=== PATIENT | male | born 1935 | race Asian ===

== ENCOUNTER 2019-07-18 17:12 | Inpatient (IN) | payer MEDICARE, MEDICAID ==
[2019-07-18] MEDS ORDERED: GLUCAGON HCl 1 MG KIT IM PRN (18:23)
[2019-07-18 18:31] VITALS: BP 145/89
[2019-07-18] MEDS: INSULIN LISPRO SLIDING SCALE 100 UNITS/ML UNIT SUBQ SCH (21:54)
[2019-07-18] MEDS: Albuterol Nebulizer 2.5mg/3mL HHN SCH (21:55)
[2019-07-18] MEDS ORDERED: Magnesium Hydroxide (MOM) 30 mL UDC PO PRN (22:36)
[2019-07-18] MEDS ORDERED: Maalox 30 mL Cup PO PRN (22:36)
--- NOTE | 2019-07-19 00:37 | History & Physical ---
ADMIT DATE: 07/18/2019 CHIEF COMPLAINT: Admitted to inpatient psychiatric unit. HISTORY OF PRESENT ILLNESS: This is an 83-year-old Polish Mosotho male with a history of diabetes, hypertension, hypercholesterolemia, recent diagnosis of Alzheimer's, admitted under the service of Dr. Pradhan. The patient was cleared medically from [facility]. The patient denies any current complaints. No chest pain or shortness of breath. PAST MEDICAL HISTORY: As mentioned in history of present illness. PAST SURGICAL HISTORY: Status post gallbladder surgery 2 years ago.appy ALLERGIES: No known drug allergies. MEDICATIONS: Benazepril, Janumet, _atorvastatin___, Lyrica and herbal supplements. FAMILY HISTORY: Noncontributory. SOCIAL HISTORY: Nonsmoker, nondrinker, no intravenous drug use. 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 with 3 children, 2 are here in [place], 1 in [place]. REVIEW OF SYSTEMS: gen: worsening symptoms per family, the patient has been agitated, not sleeping, not taking his medication and then appearing slightly paranoid, had several falls at night.not letting family out of the house HEENT: No blurred vision or pain. LUNGS: No diagnosis of COPD or asthma. HEART: The patient with hypertension and diabetes. ABDOMEN: No nausea, vomiting or pain. GENITOURINARY: The patient denies any syncope. PSYCHIATRIC: As stated above. PHYSICAL EXAMINATION: VITAL SIGNS: Blood pressure 156/64, respirations 18, pulse 88, temperature 98.6. GENERAL: Elderly male in no acute distress. NECK: Supple. No mass. LUNGS: Equal breath sounds; otherwise, clear to auscultation. HEART: Regular rate and rhythm with systolic ejection murmur. ABDOMEN: Soft, globular. EXTREMITIES: essentially normal, positive pulses. NEUROLOGIC: Limited, please refer to Dr. Pradhan's dictation for mental assessment. Cranial nerve 1, the patient is able to smell alcohol swab. Cranial nerve 2, able to read a printed page. Cranial nerve 3, able to move eyeballs upward and outward. Cranial nerve 4, able to move eyeballs inward and downward. Cranial nerve 5, able to clench teeth, has normal sensation on forehead. Cranial nerve 6, able to move eyes laterally on both sides. Cranial nerve 7, able to move eyebrows upward on both sides. Cranial nerve 8, able to hear finger rubs on both sides. Cranial nerve 9, this was offered, but the patient refused. Cranial nerve 10, this was offered, but the patient was unable to do. Cranial nerve 11, this was offered, but the patient was unable to do. Cranial nerve 12, this was offered, but the patient was unable to do. Motor and sensory are equal. Gait is not seen. and sensory are equal. Gait is not seen. ASSESSMENT AND PLAN: Diabetes, hypertension, hypercholesterolemia, peripheral neuropathy. Continue the patient on ADA diet and insulin sliding scale. We will continue on his oral hypoglycemic medications. We will continue metformin and Januvia. Continue on angiotensin converting enzyme inhibitor as well as Lyrica for neuropathy and a statin for hyperlipidemia. We will continue to monitor the patient closely with you, Dr. Pradhan. JOB# [id number] MTDD
[2019-07-19] MEDS: Albuterol Nebulizer 2.5mg/3mL HHN SCH ×2 (06:48→11:05)
[2019-07-19] MEDS: INSULIN LISPRO SLIDING SCALE 100 UNITS/ML UNIT SUBQ SCH ×4 (06:49→21:16)
[2019-07-19] MEDS: Multivitamin Tab PO SCH ×2 (08:34→09:09)
[2019-07-19] MEDS ORDERED: Albuterol Nebulizer 2.5mg/3mL HHN PRN (12:36)
--- NOTE | 2019-07-19 12:44 | Internal Medicine Prog Note ---
Internal Medicine Subjective - Subjective Patient seen and examined:: with staff, chart reviewed, other (sleepy, given a dose of ativan, was crying, wanted to go home) Patient is:: awake, verbal, interactive, jaret chair, confused Per staff patient has:: no adverse event, no episodes of fall, poor appetite, poor oral intake, noncompliant, refusing care Internal Medicine Objective - Results Recent Labs: Laboratory Last Values POC Glucose 141 MG/DL (70 - 105) H 07/18/19 20:30 - Physical Exam Vitals and I&O: Vital Signs Temp 98.3 F 07/19/19 06:06 Pulse 78 07/19/19 08:34 Resp 17 07/19/19 08:00 BP 148/75 07/19/19 08:34 Pulse Ox 98 07/19/19 06:06 Intake & Output 07/18/19 07/19/19 07/19/19 18:59 06:59 18:59 Intake Total 240 Balance 240 Weight (lbs) 63.503 kg Intake: Oral 240 Other: # Voids 2 # Bowel Movements 0 Weight Source Bedscale Active Medications: Current Medications Acetaminophen (Tylenol) 650 mg PO Q4H PRN PRN Reason: Pain (Mild 1-3) Stop: 09/16/19 18:21 Al Hydrox/Mg Hydrox/Simethicone (Maalox) 30 ml PO Q4HR PRN PRN Reason: GI DISTRESS Stop: 09/16/19 22:35 Albuterol Sulfate (Albuterol 2.5mg/3ml Neb Ud) 2.5 mg HHN QIDRT PRN PRN Reason: Shortness of Breath or Wheeze Stop: 09/16/19 18:59 Benazepril HCl (Lotensin) 10 mg PO BID [facility] Stop: 09/17/19 08:59 Last Admin: 07/19/19 08:34 Dose: 10 mg Dextrose (Glutose 40%) 18.75 gm PO PRN PRN PRN Reason: BS Below 70 if tolerate po Stop: 09/16/19 18:22 Glucagon (Glucagen) 1 mg IM PRN PRN PRN Reason: BS Below 70 if not tolerate po Stop: 09/16/19 18:22 Insulin Human Lispro (Humalog Insulin Sliding Scale) 0 units SUBQ ACHS KIANNA; Protocol Stop: 09/16/19 20:59 Last Admin: 07/19/19 11:33 Dose: Not Given Lorazepam (Ativan) 0.5 mg PO Q4HR PRN; Protocol PRN Reason: Anxiety Stop: 08/17/19 22:35 Last Admin: 07/19/19 08:48 Dose: 0.5 mg Magnesium Hydroxide (Milk Of Magnesia) 30 ml PO HS PRN PRN Reason: Constipation Metformin HCl (Glucophage) 500 mg PO BIDWM [facility] Stop: 09/17/19 08:59 Last Admin: 07/19/19 09:55 Dose: Not Given Multivitamins/Vitamin C (Theragran) 1 tab PO DAILY [facility] Stop: 09/17/19 08:59 Last Admin: 07/19/19 09:09 Dose: Not Given Pregabalin (Lyrica) 100 mg PO BID [facility] Stop: 09/17/19 08:59 Last Admin: 07/19/19 08:34 Dose: 100 mg Simvastatin (Zocor) 20 mg PO HS [facility]NA; Protocol Stop: 09/16/19 20:59 Sitagliptin Phosphate (Januvia) 50 mg PO BID [facility] Stop: 09/17/19 08:59 Last Admin: 07/19/19 09:53 Dose: Not Given Zolpidem Tartrate (Ambien) 10 mg PO HS PRN PRN Reason: Insomnia Stop: 09/16/19 23:00 Last Admin: 07/19/19 01:04 Dose: 10 mg General: thin HEENT: NC/AT, PERRLA, EOMI Neck: Supple, No JVD, No thyromegaly, No LAD Lungs: CTAB Cardiovascular: RRR, Normal S1, Normal S2, with murmur Abdomen: soft, non-tender, non-distended, positive bowel sound Extremities: clear Internal Medicine Assmt/Plan - Assessment Assessment: ASSESSMENT AND PLAN: Diabetes, hypertension, hypercholesterolemia, peripheral neuropathy. - Plan Plan: PLAN: Continue the patient on ADA diet and insulin sliding scale. We will continue on his oral hypoglycemic medications. We will continue metformin and Januvia. Continue on angiotensin converting enzyme inhibitor as well as Lyrica for neuropathy and a statin for hyperlipidemia. We will continue to monitor the patient closely with Dr. Lorne prince.
--- NOTE | 2019-07-19 17:30 | Psychiatric Evaluation ---
DATE OF SERVICE: 07/19/2019 JUSTIFICATION FOR HOSPITALIZATION: Aggressive combative behaviors, paranoias. HISTORY OF PRESENT ILLNESS: An 83-year-old male with recent diagnosis of dementia per Dr. Walker, who I spoke with over the phone. The patient has been more confused, more irritable, more disorganized, poor sleep at night, apparently trying to leave the house, paranoid of others, family could not really control him. On [id number], the patient is sleepy, AO to name only, not answering any really further questions, just tells me his name, says flores and then closes his eyes, does not want to engage unfortunately. PAST PSYCHIATRIC HISTORY: Diagnosis of dementia per Dr. Walker. FAMILY HISTORY: Noncontributory. SOCIAL HISTORY: [place] male, living at home with family. High family involvement, they want him back home upon stabilization. MEDICAL HISTORY: Noted including Januvia, Zocor, Lyrica, metformin, Lotensin. MENTAL STATUS EXAMINATION: Stated age, sleepy, hard to engage with not wanting to engage on exam. Poorly oriented, calm right now in a Nora chair, noted to be restless, very impulsive, unpredictable, concerns for psychosis. PROVISIONAL DIAGNOSES: Dementia, dementia with behaviors; mood, unspecified; anxiety, unspecified; psychosis, unspecified. MEDICAL: Please see full H and P. ESTIMATED LENGTH OF STAY: 7-10 days. ASSESSMENT: An 83-year-old [place]ic male with diagnosis of dementia, worsening; confusion at home, psychotic symptoms, delusions. TREATMENT PLAN: Includes group as well as milieu therapy. CONDITIONS FOR DISCHARGE: Improved mood, improved affect, better control of any psychotic symptoms. I will be contacting family as well today. JOB# [id number]
[2019-07-20] MEDS: INSULIN LISPRO SLIDING SCALE 100 UNITS/ML UNIT SUBQ SCH ×4 (06:56→21:21)
[2019-07-20] MEDS: Multivitamin Tab PO SCH (08:31)
[2019-07-20] MEDS: Therahoney Gel 42.5gm Tube TP SCH (11:20)
--- NOTE | 2019-07-20 12:38 | Internal Medicine Prog Note ---
Internal Medicine Subjective - Subjective Patient seen and examined:: with staff, chart reviewed Patient is:: awake, verbal, interactive, jaret chair, confused Per staff patient has:: no adverse event, no episodes of fall, poor appetite, poor oral intake, noncompliant, refusing care Internal Medicine Objective - Results Recent Labs: Laboratory Last Values POC Glucose 171 MG/DL (70 - 105) H 07/20/19 11:59 - Physical Exam Vitals and I&O: Vital Signs Temp 98.2 F 07/20/19 06:07 Pulse 90 07/20/19 08:30 Resp 18 07/20/19 06:07 BP 145/77 07/20/19 08:30 Pulse Ox 100 07/20/19 06:07 Intake & Output 07/19/19 07/20/19 07/20/19 18:59 06:59 18:59 Intake Total 800 120 Balance 800 120 Intake: Oral 800 120 Other: # Voids 3 2 # Bowel Movements 0 0 Active Medications: Current Medications Acetaminophen (Tylenol) 650 mg PO Q4H PRN PRN Reason: Pain (Mild 1-3) Stop: 09/16/19 18:21 Al Hydrox/Mg Hydrox/Simethicone (Maalox) 30 ml PO Q4HR PRN PRN Reason: GI DISTRESS Stop: 09/16/19 22:35 Albuterol Sulfate (Albuterol 2.5mg/3ml Neb Ud) 2.5 mg HHN QIDRT PRN PRN Reason: Shortness of Breath or Wheeze Stop: 09/16/19 18:59 Benazepril HCl (Lotensin) 10 mg PO BID [facility] Stop: 09/17/19 08:59 Last Admin: 07/20/19 08:30 Dose: 10 mg Dextrose (Glutose 40%) 18.75 gm PO PRN PRN PRN Reason: BS Below 70 if tolerate po Stop: 09/16/19 18:22 Glucagon (Glucagen) 1 mg IM PRN PRN PRN Reason: BS Below 70 if not tolerate po Stop: 09/16/19 18:22 Insulin Human Lispro (Humalog Insulin Sliding Scale) 0 units SUBQ ACHS KIANNA; Protocol Stop: 09/16/19 20:59 Last Admin: 07/20/19 11:35 Dose: 2 units Lorazepam (Ativan) 0.5 mg PO Q4HR PRN; Protocol PRN Reason: Anxiety Stop: 08/17/19 22:35 Last Admin: 07/19/19 08:48 Dose: 0.5 mg Magnesium Hydroxide (Milk Of Magnesia) 30 ml PO HS PRN PRN Reason: Constipation Metformin HCl (Glucophage) 500 mg PO BIDWM [facility] Stop: 09/17/19 08:59 Last Admin: 07/20/19 08:00 Dose: 500 mg Multivitamins/Vitamin C (Theragran) 1 tab PO DAILY [facility] Stop: 09/17/19 08:59 Last Admin: 07/20/19 08:31 Dose: 1 tab Pregabalin (Lyrica) 100 mg PO BID [facility] Stop: 09/17/19 08:59 Last Admin: 07/20/19 08:31 Dose: 100 mg Quetiapine Fumarate (Seroquel) 12.5 mg PO HS [facility]; Protocol Stop: 09/17/19 20:59 Last Admin: 07/19/19 21:14 Dose: 12.5 mg Simvastatin (Zocor) 20 mg PO HS [facility]; Protocol Stop: 09/16/19 20:59 Last Admin: 07/19/19 21:14 Dose: 20 mg Sitagliptin Phosphate (Januvia) 50 mg PO BID [facility] Stop: 09/17/19 08:59 Last Admin: 07/20/19 08:31 Dose: 50 mg Wound Care/Dressing Products (Therahoney) 1 appl TP DAILY [facility] Stop: 09/18/19 11:14 Last Admin: 07/20/19 11:20 Dose: 1 appl Zolpidem Tartrate (Ambien) 10 mg PO HS PRN PRN Reason: Insomnia Stop: 09/16/19 23:00 Last Admin: 07/19/19 01:04 Dose: 10 mg General: thin HEENT: NC/AT, PERRLA, EOMI Neck: Supple, No JVD, No thyromegaly, No LAD Lungs: CTAB Cardiovascular: RRR, Normal S1, Normal S2, with murmur Abdomen: soft, non-tender, non-distended, positive bowel sound Extremities: clear Internal Medicine Assmt/Plan - Assessment Assessment: ASSESSMENT AND PLAN: Diabetes, hypertension, hypercholesterolemia, peripheral neuropathy. - Plan Plan: PLAN: Continue the patient on ADA diet and insulin sliding scale. We will continue on his oral hypoglycemic medications. We will continue metformin and Januvia. Continue on angiotensin converting enzyme inhibitor as well as Lyrica for neuropathy and a statin for hyperlipidemia. We will continue to monitor the patient closely with you, Dr. Pradhan.
--- NOTE | 2019-07-20 19:25 | Progress Notes ---
DATE: 07/20/2019 SUBJECTIVE: An 83-year-old male with recent diagnosis of dementia. I spoke with the patient's daughter over the phone yesterday. The patient at baseline is confused, but he has been worsening at home, more confused, more irritable. Daughter noting he is getting more paranoid, memories were fading and now he is mostly living out memories from the [place], believing that his is being kidnapped and when the leaves the home, he gets extremely scared and believes that someone kidnapped her, so he starts to act out. Also, not really sleeping very well at night. Up at night, just rambling, going on and on about the [place], different topics to the point that the cannot sleep in the house and the cannot really manage him in the house, they are asking actually for placement, not confident that they can take care of him given his decompensation. Staff noting he yells at times, restless, confused, anxious, poor orientation. Medications were reviewed. Vitals were reviewed. Labs were reviewed. Blood pressure 114/67, pulse of 83. Nursing notes were reviewed, noting confusion, anxiousness, restless, talkative, but generally confused. Medications include a small dose of Seroquel, which seems to help him sleep at last night. MENTAL STATUS EXAMINATION: Stated age. Fair eye contact. Mood "okay," confused, disoriented, calm right now, very impulsive. DIAGNOSES: Dementia, dementia with behavioral disturbances; anxiety, unspecified; mood, unspecified. MEDICAL: Please see full H and P. ASSESSMENT: An 83-year-old male with no formal psychiatric history, diagnosed with dementia and worsening and more psychotic and delusional causing disturbances at home, not sleeping. Family having a hard time controlling his behaviors at home. PLAN: I will continue small dose of Seroquel, I may need to increase. Discussed at length with daughter yesterday over the phone. JOB# [id number]
[2019-07-21] MEDS: INSULIN LISPRO SLIDING SCALE 100 UNITS/ML UNIT SUBQ SCH ×4 (06:32→21:33)
[2019-07-21] MEDS: Therahoney Gel 42.5gm Tube TP SCH (08:36)
[2019-07-21] MEDS: Multivitamin Tab PO SCH (08:36)
--- NOTE | 2019-07-21 12:30 | Internal Medicine Prog Note ---
Internal Medicine Subjective - Subjective Patient seen and examined:: with staff, chart reviewed Patient is:: awake, verbal, interactive, jaret chair, confused Per staff patient has:: no adverse event, no episodes of fall, poor appetite, poor oral intake, noncompliant, refusing care Internal Medicine Objective - Results Recent Labs: Laboratory Last Values POC Glucose 179 MG/DL (70 - 105) H 07/21/19 11:21 - Physical Exam Vitals and I&O: Vital Signs Temp 97.0 F 07/21/19 05:55 Pulse 87 07/21/19 08:36 Resp 20 07/21/19 05:55 BP 120/72 07/21/19 08:36 Pulse Ox 87 07/21/19 05:55 Intake & Output 07/20/19 07/21/19 07/21/19 18:59 06:59 18:59 Intake Total 1200 240 Balance 1200 240 Intake: Oral 1200 240 Other: # Voids 2 # Bowel Movements 1 0 Active Medications: Current Medications Acetaminophen (Tylenol) 650 mg PO Q4H PRN PRN Reason: Pain (Mild 1-3) Stop: 09/16/19 18:21 Al Hydrox/Mg Hydrox/Simethicone (Maalox) 30 ml PO Q4HR PRN PRN Reason: GI DISTRESS Stop: 09/16/19 22:35 Albuterol Sulfate (Albuterol 2.5mg/3ml Neb Ud) 2.5 mg HHN QIDRT PRN PRN Reason: Shortness of Breath or Wheeze Stop: 09/16/19 18:59 Benazepril HCl (Lotensin) 10 mg PO BID [facility] Stop: 09/17/19 08:59 Last Admin: 07/21/19 08:36 Dose: 10 mg Dextrose (Glutose 40%) 18.75 gm PO PRN PRN PRN Reason: BS Below 70 if tolerate po Stop: 09/16/19 18:22 Glucagon (Glucagen) 1 mg IM PRN PRN PRN Reason: BS Below 70 if not tolerate po Stop: 09/16/19 18:22 Insulin Human Lispro (Humalog Insulin Sliding Scale) 0 units SUBQ ACHS [facility]NA; Protocol Stop: 09/16/19 20:59 Last Admin: 07/21/19 11:29 Dose: 2 units Lorazepam (Ativan) 0.5 mg PO Q4HR PRN; Protocol PRN Reason: Anxiety Stop: 08/17/19 22:35 Last Admin: 07/19/19 08:48 Dose: 0.5 mg Magnesium Hydroxide (Milk Of Magnesia) 30 ml PO HS PRN PRN Reason: Constipation Metformin HCl (Glucophage) [address] [facility] Stop: 09/17/19 08:59 Last Admin: 07/21/19 08:00 Dose: 500 mg Multivitamins/Vitamin C (Theragran) 1 tab PO DAILY [facility] Stop: 09/17/19 08:59 Last Admin: 07/21/19 08:36 Dose: 1 tab Pregabalin (Lyrica) 100 mg PO BID [facility] Stop: 09/17/19 08:59 Last Admin: 07/21/19 08:36 Dose: 100 mg Quetiapine Fumarate (Seroquel) [address] [facility]; Protocol Stop: 09/19/19 20:59 Simvastatin (Zocor) [address] [facility]; Protocol Stop: 09/16/19 20:59 Last Admin: 07/20/19 21:22 Dose: 20 mg Sitagliptin Phosphate (Januvia) 50 mg PO BID [facility] Stop: 09/17/19 08:59 Last Admin: 07/21/19 08:36 Dose: 50 mg Tamsulosin HCl (Flomax) 0.[address] [facility] Stop: 09/19/19 12:26 Wound Care/Dressing Products (Therahoney) [address] [facility] Stop: 09/18/19 11:14 Last Admin: 07/21/19 08:36 Dose: 1 appl Zolpidem Tartrate (Ambien) 10 mg PO HS PRN PRN Reason: Insomnia Stop: 09/16/19 23:00 Last Admin: 07/19/19 01:04 Dose: 10 mg General: thin HEENT: NC/AT, PERRLA, EOMI Neck: Supple, No JVD, No thyromegaly, No LAD Lungs: CTAB Cardiovascular: RRR, Normal S1, Normal S2, with murmur Abdomen: soft, non-tender, non-distended, positive bowel sound Extremities: clear Internal Medicine Assmt/Plan - Assessment Assessment: ASSESSMENT AND PLAN: Diabetes, hypertension, hypercholesterolemia, peripheral neuropathy. bph - Plan Plan: PLAN: Continue the patient on ADA diet and insulin sliding scale. We will continue on his oral hypoglycemic medications. We will continue metformin and Januvia. Continue on angiotensin converting enzyme inhibitor as well as Lyrica for neuropathy and a statin for hyperlipidemia. will add flomax
--- NOTE | 2019-07-21 14:41 | Progress Notes ---
DATE: 07/21/2019 SUBJECTIVE: He is an 83-year-old Persian male. He was coming from home, family could not handle him. 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 The patient with poor sleep, rambling, having a swallow eval, hard to follow his thought processes, noted history of dementia per the family. Dementia with behaviors, strong delusions that the family was at risk from [place], living in the war. Staff noting a lot of insomnia, mostly restless, keeps to self. Medications were reviewed. Vitals were reviewed. Labs were reviewed. No overt side effects. Blood pressure 129/62, pulse of 97. DIAGNOSIS: Dementia, dementia with behaviors. MENTAL STATUS EXAMINATION: Stated age, in a Nora chair, restless, confused, but calm right now. PLAN: We will follow alongside. PLAN: We will continue to monitor, I will be increasing his dosing of Seroquel. Family also is asking for help with placement. JOB# [id number]
[2019-07-22] MEDS: INSULIN LISPRO SLIDING SCALE 100 UNITS/ML UNIT SUBQ SCH ×4 (06:35→21:00)
[2019-07-22] MEDS: Multivitamin Tab PO SCH (09:00)
[2019-07-22] MEDS: Triple Antibiotic 0.94 gm Pkt TP SCH ×2 (09:29→17:31)
--- NOTE | 2019-07-22 10:06 | Internal Medicine Prog Note ---
Internal Medicine Subjective - Subjective Service Date: 07/22/19 Patient is:: awake, verbal, interactive, jaret chair, confused Per staff patient has:: no adverse event, no episodes of fall, poor appetite, poor oral intake, noncompliant, refusing care Internal Medicine Objective - Results Recent Labs: Laboratory Last Values POC Glucose 103 MG/DL (70 - 105) 07/22/19 05:26 - Physical Exam Vitals and I&O: Vital Signs Temp 97.4 F 07/22/19 06:08 Pulse 99 07/22/19 09:00 Resp 19 07/22/19 06:08 BP 136/67 07/22/19 09:00 Pulse Ox 99 07/22/19 06:08 Intake & Output 07/21/19 07/22/19 07/22/19 18:59 06:59 18:59 Intake Total 1000 160 Output Total 1 Balance 1000 159 Intake: Oral 1000 160 Output: Stool 1 Urine/Stool Mix 0 Other: # Voids 5 1 # Bowel Movements 0 0 Active Medications: Current Medications Acetaminophen (Tylenol) 650 mg PO Q4H PRN PRN Reason: Pain (Mild 1-3) Stop: 09/16/19 18:21 Al Hydrox/Mg Hydrox/Simethicone (Maalox) 30 ml PO Q4HR PRN PRN Reason: GI DISTRESS Stop: 09/16/19 22:35 Albuterol Sulfate (Albuterol 2.5mg/3ml Neb Ud) 2.5 mg HHN QIDRT PRN PRN Reason: Shortness of Breath or Wheeze Stop: 09/16/19 18:59 Benazepril HCl (Lotensin) 10 mg PO BID [facility] Stop: 09/17/19 08:59 Last Admin: 07/22/19 09:00 Dose: 10 mg Dextrose (Glutose 40%) 18.75 gm PO PRN PRN PRN Reason: BS Below 70 if tolerate po Stop: 09/16/19 18:22 Glucagon (Glucagen) 1 mg IM PRN PRN PRN Reason: BS Below 70 if not tolerate po Stop: 09/16/19 18:22 Insulin Human Lispro (Humalog Insulin Sliding Scale) 0 units SUBQ ACHS KIANNA; Protocol Stop: 09/16/19 20:59 Last Admin: 07/22/19 06:35 Dose: Not Given Lorazepam (Ativan) 0.5 mg PO Q4HR PRN; Protocol PRN Reason: Anxiety Stop: 08/17/19 22:35 Last Admin: 07/21/19 16:36 Dose: 0.5 mg Magnesium Hydroxide (Milk Of Magnesia) 30 ml PO HS PRN PRN Reason: Constipation Metformin HCl (Glucophage) 500 mg PO BIDWM [facility]NA Stop: 09/17/19 08:59 Last Admin: 07/22/19 09:00 Dose: 500 mg Multivitamins/Vitamin C (Theragran) 1 tab PO DAILY [facility] Stop: 09/17/19 08:59 Last Admin: 07/22/19 09:00 Dose: 1 tab Neomycin/Polymyxin/Bacitracin (Triple Antibiotic Pkt) 1 pkt TP BID [facility] Stop: 09/20/19 08:59 Last Admin: 07/22/19 09:29 Dose: 1 pkt Pregabalin (Lyrica) 100 mg PO BID [facility] Stop: 09/17/19 08:59 Last Admin: 07/22/19 09:00 Dose: 100 mg Quetiapine Fumarate (Seroquel) 25 mg PO HS KIANNA; Protocol Stop: 09/19/19 20:59 Last Admin: 07/21/19 21:28 Dose: 25 mg Simvastatin (Zocor) 20 mg PO HS KIANNA; Protocol Stop: 09/16/19 20:59 Last Admin: 07/21/19 21:28 Dose: 20 mg Sitagliptin Phosphate (Januvia) 50 mg PO BID [facility] Stop: 09/17/19 08:59 Last Admin: 07/22/19 09:25 Dose: 50 mg Tamsulosin HCl (Flomax) 0.4 mg PO DAILY [facility] Stop: 09/19/19 12:26 Last Admin: 07/22/19 09:01 Dose: 0.4 mg Wound Care/Dressing Products (Therahoney) 1 appl TP DAILY [facility] Stop: 09/18/19 11:14 Last Admin: 07/21/19 08:36 Dose: 1 appl Zolpidem Tartrate (Ambien) 10 mg PO HS PRN PRN Reason: Insomnia Stop: 09/16/19 23:00 Last Admin: 07/19/19 01:04 Dose: 10 mg General: thin HEENT: NC/AT, PERRLA, EOMI Neck: Supple, No JVD, No thyromegaly, No LAD Lungs: CTAB Cardiovascular: RRR, Normal S1, Normal S2, with murmur Abdomen: soft, non-tender, non-distended, positive bowel sound Extremities: clear Internal Medicine Assmt/Plan - Assessment Assessment: ASSESSMENT AND PLAN: Diabetes, hypertension, hypercholesterolemia, peripheral neuropathy. bph - Plan Plan: Continue the patient on ADA diet and insulin sliding scale. We will continue on his oral hypoglycemic medications. We will continue metformin and Januvia. Continue on angiotensin converting enzyme inhibitor as well as Lyrica for neuropathy and a statin for hyperlipidemia. Nutritional Asmnt/Malnutr-PDOC - Dietary Evaluation Malnutrition Findings (Please click <Entered> for more info): Nutritional Asmnt/Malnutrition Start: 07/21/19 14: 03 Text: Status: Complete Freq: Protocol: Document 07/21/19 14:03 JASBIR (Rec: 07/21/19 14:10 JASBIR [email or web address]) Nutritional Asmnt/Malnutrition Patient General Information Nutritional Screening Moderate Risk Low Risk Diagnosis Psychosis Pertinent Medical Hx/Surgical Hx HTN, DM, Hypercholesterolemia, Alzheimers Subjective Information Pt is a 83-year-old male admitted on 07/17 d/t aggressive combative behaviors , paranoias. Pt is eating an estimated 70% of meals per [employer]IL[employer] MECH[employer]IC account. Dietary is currently providing an estimated 2500 kcals and 128 gm Pro, per Pt PO intake this is providing an estimated 1750 kcals and 90gm Pro to meet 100% kcal and 100 +% Pro needs. Pt receives Glucerna TID with snacks per pt request. 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 Pt stated he does not need a liquid diet, he does enjoy soups but can chew just fine. Pt does require assistance when eating. Pt. is adequately meeting estimated nutritional needs, has not had any Glucerna. Discounting Glucerna TID, will continue to monitor PO intake. Anthropometrics HT: 57 WT: 140 LB (63.63 kg) BMI: 21.92 (Normal) GI/ Skin Integrity GI: WNL, Soft, Non-tender, flat BM: 07/19 x1 I/O: 1440/Not Noted Skin: Wound on nose bridge, left fifth toe wound Brody: 17 Diet Order: CCHO, Chopped Estimated Energy Needs: ( Geriatric, CBW) 7581-0710 kcals (25-30 kcals/ kg) 65-80g Pro (1.0-1.2 g/kg) 9844-3922 ml (25-30 ml/kg) Current Diet Order/ Nutrition Support CCHO, Chopped Patient / S.O Can Pertinent Medications Maalox (PRN), Albuterol (PRN), Glutose 40% (PRN), Glucagen ( PRN), INS-SS, MOM (PRN), Glucophage, Theragran, Januvia , Flomax Pertinent Labs POC Glucose (last 24 hrs): 106 , 171, 108, 96, 179 07/17 Na 130, Glucose 135, T Pro 6.1, Alb 3.3, A1C 5.8% Nutritional Hx/Data Height 5 ft 7 in Height (Calculated Centimeters) 170.2 Current Weight (lbs) 140 lb Weight (Calculated Kilograms) 63.5 Weight (Calculated Grams) 72849.9 [place] Body Weight 148 lbs (67.27kg) Body Mass Index (BMI) 21.9 Weight Status Approriate GI Symptoms GI Symptoms None Last BM 07/19 x1 Usual diet at home lots of broths Skin Integrity/Comment: Skin: Wound on nose bridge, left fifth toe wound Brody: 17 Current %PO Fair (50-74%) Estimated Nutritional Goals BEE in Kcals: Using Current wt Calories/Kcals/Kg 25-30 Kcals Calculated 2765-9789 Protein: Using Current wt Protein g/k.0-1.2 Protein Calculated 65-80 Fluid: ml 6367-2905 ml (25-30 ml/kg) Nutritional Problem 1. Problem Problem Impaired nutrient utilization Etiology r/t endocrine dysfunction Signs/Symptoms: aeb labs 07/17 Glucose 135, 07/20 POC Glucose 106, 171, 108, 96 , 179 and A1C 5.8%. Malnutrition Related to Morbid Obesity Malnutrition related to morbid obesity No Intervention/Recommendation Comments 1.Continue CCHO, chopped diet as tolerated. 2.Continue antihyperglycemic medication for glucose control per MD order. Expected Outcomes/Goals Expected Outcomes/Goals 1.PO intake to meet 75% of estimated nutritional needs. 2.Monitor PO intake, wt, nutrition related labs, and skin integrity to trend WNL. 3.F/U as low risk in 7-10 days , 07/27-07/30.
[2019-07-22] MEDS: Therahoney Gel 42.5gm Tube TP SCH (14:23)
--- NOTE | 2019-07-22 22:15 | Progress Notes ---
DATE: SUBJECTIVE: The patient was seen and chart reviewed, and discussed with staff. The patient continues to be extremely disoriented and confused, continues to feel that he is fighting in the [place] War and that his has been kidnapped. The patient is extremely verbose, confabulating most of his answers. He has however been compliant with his medications. Denying any undue side effects. PLAN: The patient continues to be extremely disoriented and confused, so that he will require inpatient care center treatment. We will monitor the patient on a daily basis for response to medications and titrate medications as needed. JOB# [id number]
[2019-07-23] MEDS: INSULIN LISPRO SLIDING SCALE 100 UNITS/ML UNIT SUBQ SCH ×4 (06:56→20:33)
[2019-07-23] MEDS: Triple Antibiotic 0.94 gm Pkt TP SCH ×2 (09:19→17:37)
[2019-07-23] MEDS: Multivitamin Tab PO SCH (09:22)
[2019-07-23] MEDS: Therahoney Gel 42.5gm Tube TP SCH (09:23)
--- NOTE | 2019-07-23 10:40 | Internal Medicine Prog Note ---
Internal Medicine Subjective - Subjective Service Date: 07/23/19 Patient is:: awake, verbal, interactive, jaret chair, confused Per staff patient has:: no adverse event, no episodes of fall, poor appetite, poor oral intake, noncompliant, refusing care Internal Medicine Objective - Results Recent Labs: Laboratory Last Values POC Glucose 126 MG/DL (70 - 105) H 07/23/19 06:04 - Physical Exam Vitals and I&O: Vital Signs Temp 97.1 F 07/23/19 06:15 Pulse 92 07/23/19 09:19 Resp 20 07/23/19 06:15 BP 132/80 07/23/19 09:19 Pulse Ox 96 07/23/19 06:15 Intake & Output 07/22/19 07/23/19 07/23/19 18:59 06:59 18:59 Intake Total 1000 360 Output Total 1 Balance 1000 359 Intake: Oral 1000 360 Output: Urine/Stool Mix 1 Other: # Voids 7 1 # Bowel Movements 1 0 Stool Characteristics Formed Brown Active Medications: Current Medications Acetaminophen (Tylenol) 650 mg PO Q4H PRN PRN Reason: Pain (Mild 1-3) Stop: 09/16/19 18:21 Al Hydrox/Mg Hydrox/Simethicone (Maalox) 30 ml PO Q4HR PRN PRN Reason: GI DISTRESS Stop: 09/16/19 22:35 Albuterol Sulfate (Albuterol 2.5mg/3ml Neb Ud) 2.5 mg HHN QIDRT PRN PRN Reason: Shortness of Breath or Wheeze Stop: 09/16/19 18:59 Benazepril HCl (Lotensin) 10 mg PO BID [facility] Stop: 09/17/19 08:59 Last Admin: 07/23/19 09:19 Dose: 10 mg Dextrose (Glutose 40%) 18.75 gm PO PRN PRN PRN Reason: BS Below 70 if tolerate po Stop: 09/16/19 18:22 Glucagon (Glucagen) 1 mg IM PRN PRN PRN Reason: BS Below 70 if not tolerate po Stop: 09/16/19 18:22 Insulin Human Lispro (Humalog Insulin Sliding Scale) 0 units SUBQ ACHS KIANNA; Protocol Stop: 09/16/19 20:59 Last Admin: 07/23/19 06:56 Dose: Not Given Lorazepam (Ativan) 0.5 mg PO Q4HR PRN; Protocol PRN Reason: Anxiety Stop: 08/17/19 22:35 Last Admin: 07/21/19 16:36 Dose: 0.5 mg Magnesium Hydroxide (Milk Of Magnesia) 30 ml PO HS PRN PRN Reason: Constipation Metformin HCl (Glucophage) 500 mg PO BIDWM [facility] Stop: 09/17/19 08:59 Last Admin: 07/23/19 09:19 Dose: 500 mg Multivitamins/Vitamin C (Theragran) 1 tab PO DAILY [facility] Stop: 09/17/19 08:59 Last Admin: 07/23/19 09:22 Dose: 1 tab Neomycin/Polymyxin/Bacitracin (Triple Antibiotic Pkt) 1 pkt TP BID [facility] Stop: 09/20/19 08:59 Last Admin: 07/23/19 09:19 Dose: 1 pkt Pregabalin (Lyrica) 100 mg PO BID [facility] Stop: 09/17/19 08:59 Last Admin: 07/23/19 09:22 Dose: 100 mg Quetiapine Fumarate (Seroquel) 25 mg PO HS KIANNA; Protocol Stop: 09/19/19 20:59 Last Admin: 07/22/19 21:02 Dose: 25 mg Simvastatin (Zocor) 20 mg PO HS [facility]IANNA; Protocol Stop: 09/16/19 20:59 Last Admin: 07/22/19 21:02 Dose: 20 mg Sitagliptin Phosphate (Januvia) 50 mg PO BID [facility] Stop: 09/17/19 08:59 Last Admin: 07/23/19 09:22 Dose: 50 mg Tamsulosin HCl (Flomax) 0.4 mg PO DAILY [facility] Stop: 09/19/19 12:26 Last Admin: 07/23/19 09:23 Dose: 0.4 mg Wound Care/Dressing Products (Therahoney) 1 appl TP DAILY [facility] Stop: 09/18/19 11:14 Last Admin: 07/23/19 09:23 Dose: 1 appl Zolpidem Tartrate (Ambien) 10 mg PO HS PRN PRN Reason: Insomnia Stop: 09/16/19 23:00 Last Admin: 07/22/19 21:02 Dose: 10 mg General: thin HEENT: NC/AT, PERRLA, EOMI Neck: Supple, No JVD, No thyromegaly, No LAD Lungs: CTAB Cardiovascular: RRR, Normal S1, Normal S2, with murmur Abdomen: soft, non-tender, non-distended, positive bowel sound Extremities: clear Internal Medicine Assmt/Plan - Assessment Assessment: ASSESSMENT AND PLAN: Diabetes, hypertension, hypercholesterolemia, peripheral neuropathy. bph - Plan Plan: Continue the patient on ADA diet and insulin sliding scale. We will continue on his oral hypoglycemic medications. We will continue metformin and Januvia. Continue on angiotensin converting enzyme inhibitor as well as Lyrica for neuropathy and a statin for hyperlipidemia. Nutritional Asmnt/Malnutr-PDOC - Dietary Evaluation Malnutrition Findings (Please click <Entered> for more info): Nutritional Asmnt/Malnutrition Start: 07/21/19 14: 03 Text: Status: Complete Freq: Protocol: Document 07/21/19 14:03 JASBIR (Rec: 07/21/19 14:10 JASBIR [email or web address]) Nutritional Asmnt/Malnutrition Patient General Information Nutritional Screening Moderate Risk Low Risk Diagnosis Psychosis Pertinent Medical Hx/Surgical Hx HTN, DM, Hypercholesterolemia, Alzheimers Subjective Information Pt is a 83-year-old male admitted on 07/17 d/t aggressive combative behaviors , paranoias. 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 Dietary is currently providing an estimated 2500 kcals and 128 gm Pro, per Pt PO intake this is providing an estimated 1750 kcals and 90gm Pro to meet 100% kcal and 100 +% Pro needs. Pt receives Glucerna TID with snacks per pt request. 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 Pt stated he does not need a liquid diet, he does enjoy soups but can chew just fine. Pt does require assistance when eating. Pt. is adequately meeting estimated nutritional needs, has not had any Glucerna. Discounting Glucerna TID, will continue to monitor PO intake. Anthropometrics HT: 57 WT: 140 LB (63.63 kg) BMI: 21.92 (Normal) GI/ Skin Integrity GI: WNL, Soft, Non-tender, flat BM: 07/19 x1 I/O: 1440/Not Noted Skin: Wound on nose bridge, left fifth toe wound Brody: 17 Diet Order: CCHO, Chopped Estimated Energy Needs: ( Geriatric, CBW) 9658-9507 kcals (25-30 kcals/ kg) 65-80g Pro (1.0-1.2 g/kg) 3576-8084 ml (25-30 ml/kg) Current Diet Order/ Nutrition Support CCHO, Chopped Patient / S.O Can Pertinent Medications Maalox (PRN), Albuterol (PRN), Glutose 40% (PRN), Glucagen ( PRN), INS-SS, MOM (PRN), Glucophage, Theragran, Januvia , Flomax Pertinent Labs POC Glucose (last 24 hrs): 106 , 171, 108, 96, 179 07/17 Na 130, Glucose 135, T Pro 6.1, Alb 3.3, A1C 5.8% Nutritional Hx/Data Height 5 ft 7 in Height (Calculated Centimeters) 170.2 Current Weight (lbs) 140 lb Weight (Calculated Kilograms) 63.5 Weight (Calculated Grams) 98299.9 [place] Body Weight 148 lbs (67.27kg) Body Mass Index (BMI) 21.9 Weight Status Approriate GI Symptoms GI Symptoms None Last BM 07/19 x1 Usual diet at home lots of broths Skin Integrity/Comment: Skin: Wound on nose bridge, left fifth toe wound Brody: 17 Current %PO Fair (50-74%) Estimated Nutritional Goals BEE in Kcals: Using Current wt Calories/Kcals/Kg 25-30 Kcals Calculated 5104-3110 Protein: Using Current wt Protein g/k.0-1.2 Protein Calculated 65-80 Fluid: ml 9583-4048 ml (25-30 ml/kg) Nutritional Problem 1. Problem Problem Impaired nutrient utilization Etiology r/t endocrine dysfunction Signs/Symptoms: aeb labs 07/17 Glucose 135, 07/20 POC Glucose 106, 171, 108, 96 , 179 and A1C 5.8%. Malnutrition Related to Morbid Obesity Malnutrition related to morbid obesity No Intervention/Recommendation Comments 1.Continue CCHO, chopped diet as tolerated. 2.Continue antihyperglycemic medication for glucose control per MD order. Expected Outcomes/Goals Expected Outcomes/Goals 1.PO intake to meet 75% of estimated nutritional needs. 2.Monitor PO intake, wt, nutrition related labs, and skin integrity to trend WNL. 3.F/U as low risk in 7-10 days , 07/27-07/30.
--- NOTE | 2019-07-23 20:10 | Progress Notes ---
DATE: SUBJECTIVE: The patient is currently in the hospital. He is an 83-year-old [place] born male who is coming from home, was causing a lot of disturbances at home, was very unruly, agitated, reliving the [place] War. 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 Family had a lot of concerns about his behaviors. He was not sleeping at night, psychotic, delusional, also concerned that the was possibly in harm's way, also elderly herself. Currently now in the hospital, he is calmer. Staff noting he has actually been sleeping better. It seems that the increased dose of Seroquel is calming him down. He is eating with some assistance, sleeping more through the night, polite on exam, limited [place]. I did speak with the daughter at length last week, also discussed at length with staff today, also the ____, RN. Medications were reviewed. Labs ____ EPS, no akathisia. He does not appear to be oversedated. MENTAL STATUS EXAMINATION: Stated age. Fair eye contact, in a Nora chair, confused, disoriented, AO to name only, calm, somewhat pleasant on exam, still pretty impulsive, unpredictable, staff watching him closely. He needs quite a bit of assistance with ADLs. DIAGNOSES: Dementia, dementia with behaviors; mood, unspecified; anxiety, unspecified; psychosis, unspecified. PLAN: Doing well with current dosing of his Seroquel. We will continue to monitor. We will wait on any dose adjustments for now. JOB# [id number]
[2019-07-24] MEDS: INSULIN LISPRO SLIDING SCALE 100 UNITS/ML UNIT SUBQ SCH ×4 (06:33→20:50)
[2019-07-24] MEDS: Multivitamin Tab PO SCH (08:21)
[2019-07-24] MEDS: Triple Antibiotic 0.94 gm Pkt TP SCH ×2 (08:22→16:11)
[2019-07-24] MEDS: Therahoney Gel 42.5gm Tube TP SCH (09:48)
--- NOTE | 2019-07-24 12:52 | Internal Medicine Prog Note ---
Internal Medicine Subjective - Subjective Patient seen and examined:: with staff, chart reviewed Patient is:: awake, verbal, interactive, jaret chair, confused Per staff patient has:: no adverse event, no episodes of fall, poor appetite, poor oral intake, noncompliant, refusing care Internal Medicine Objective - Results Recent Labs: Laboratory Last Values POC Glucose 110 MG/DL (70 - 105) H 07/24/19 06:14 - Physical Exam Vitals and I&O: Vital Signs Temp 97.5 F 07/24/19 06:09 Pulse 78 07/24/19 08:21 Resp 17 07/24/19 08:00 BP 129/70 07/24/19 08:21 Pulse Ox 91 07/24/19 06:09 Intake & Output 07/23/19 07/24/19 07/24/19 18:59 06:59 18:59 Intake Total 750 Balance 750 Intake: Oral 750 Other: # Voids 3 # Bowel Movements 2 0 Stool Characteristics Formed Brown Active Medications: Current Medications Acetaminophen (Tylenol) 650 mg PO Q4H PRN PRN Reason: Pain (Mild 1-3) Stop: 09/16/19 18:21 Last Admin: 07/23/19 15:30 Dose: 650 mg Al Hydrox/Mg Hydrox/Simethicone (Maalox) 30 ml PO Q4HR PRN PRN Reason: GI DISTRESS Stop: 09/16/19 22:35 Albuterol Sulfate (Albuterol 2.5mg/3ml Neb Ud) 2.5 mg HHN QIDRT PRN PRN Reason: Shortness of Breath or Wheeze Stop: 09/16/19 18:59 Benazepril HCl (Lotensin) 10 mg PO BID [facility] Stop: 09/17/19 08:59 Last Admin: 07/24/19 08:21 Dose: 10 mg Dextrose (Glutose 40%) 18.75 gm PO PRN PRN PRN Reason: BS Below 70 if tolerate po Stop: 09/16/19 18:22 Glucagon (Glucagen) 1 mg IM PRN PRN PRN Reason: BS Below 70 if not tolerate po Stop: 09/16/19 18:22 Insulin Human Lispro (Humalog Insulin Sliding Scale) 0 units SUBQ ACHS KIANNA; Protocol Stop: 09/16/19 20:59 Last Admin: 07/24/19 11:28 Dose: Not Given Lorazepam (Ativan) 0.5 mg PO Q4HR PRN; Protocol PRN Reason: Anxiety Stop: 08/17/19 22:35 Last Admin: 07/21/19 16:36 Dose: 0.5 mg Magnesium Hydroxide (Milk Of Magnesia) 30 ml PO HS PRN PRN Reason: Constipation Metformin HCl (Glucophage) 500 mg PO BIDWM [facility] Stop: 09/17/19 08:59 Last Admin: 07/24/19 08:21 Dose: 500 mg Multivitamins/Vitamin C (Theragran) 1 tab PO DAILY [facility] Stop: 09/17/19 08:59 Last Admin: 07/24/19 08:21 Dose: 1 tab Neomycin/Polymyxin/Bacitracin (Triple Antibiotic Pkt) 1 pkt TP BID [facility] Stop: 09/20/19 08:59 Last Admin: 07/24/19 08:22 Dose: 1 pkt Pregabalin (Lyrica) 100 mg PO BID [facility] Stop: 09/17/19 08:59 Last Admin: 07/24/19 08:21 Dose: 100 mg Quetiapine Fumarate (Seroquel) 25 mg PO HS [facility]; Protocol Stop: 09/19/19 20:59 Last Admin: 07/23/19 20:33 Dose: 25 mg Simvastatin (Zocor) 20 mg PO HS [facility]; Protocol Stop: 09/16/19 20:59 Last Admin: 07/23/19 20:33 Dose: 20 mg Sitagliptin Phosphate (Januvia) 50 mg PO BID [facility] Stop: 09/17/19 08:59 Last Admin: 07/24/19 08:21 Dose: 50 mg Tamsulosin HCl (Flomax) 0.4 mg PO DAILY [facility] Stop: 09/19/19 12:26 Last Admin: 07/24/19 08:21 Dose: 0.4 mg Wound Care/Dressing Products (Therahoney) 1 appl TP DAILY [facility] Stop: 09/18/19 11:14 Last Admin: 07/23/19 09:23 Dose: 1 appl Zolpidem Tartrate (Ambien) 10 mg PO HS PRN PRN Reason: Insomnia Stop: 09/16/19 23:00 Last Admin: 07/23/19 20:33 Dose: 10 mg General: thin HEENT: NC/AT, PERRLA, EOMI Neck: Supple, No JVD, No thyromegaly, No LAD Lungs: CTAB Cardiovascular: RRR, Normal S1, Normal S2, with murmur Abdomen: soft, non-tender, non-distended, positive bowel sound Extremities: clear Internal Medicine Assmt/Plan - Assessment Assessment: ASSESSMENT AND PLAN: Diabetes, hypertension, hypercholesterolemia, peripheral neuropathy. bph - Plan Plan: PLAN: Continue the patient on ADA diet and insulin sliding scale. We will continue on his oral hypoglycemic medications. We will continue metformin and Januvia. Continue on angiotensin converting enzyme inhibitor as well as Lyrica for neuropathy and a statin for hyperlipidemia. will add flomax Nutritional Asmnt/Malnutr-PDOC - Dietary Evaluation Malnutrition Findings (Please click <Entered> for more info): Nutritional Asmnt/Malnutrition Start: 07/21/19 14: 03 Text: Status: Complete Freq: Protocol: Document 07/21/19 14:03 JASBIR (Rec: 07/21/19 14:10 JASBIR [email or web address]) Nutritional Asmnt/Malnutrition Patient General Information Nutritional Screening Moderate Risk Low Risk Diagnosis Psychosis Pertinent Medical Hx/Surgical Hx HTN, DM, Hypercholesterolemia, Alzheimers Subjective Information Pt is a 83-year-old male admitted on 07/17 d/t aggressive combative behaviors , paranoias. 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 Dietary is currently providing an estimated 2500 kcals and 128 gm Pro, per Pt PO intake this is providing an estimated 1750 kcals and 90gm Pro to meet 100% kcal and 100 +% Pro needs. Pt receives Glucerna TID with snacks per pt request. 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 Pt stated he does not need a liquid diet, he does enjoy soups but can chew just fine. Pt does require assistance when eating. Pt. is adequately meeting estimated nutritional needs, has not had any Glucerna. Discounting Glucerna TID, will continue to monitor PO intake. Anthropometrics HT: 57 WT: 140 LB (63.63 kg) BMI: 21.92 (Normal) GI/ Skin Integrity GI: WNL, Soft, Non-tender, flat BM: 07/19 x1 I/O: 1440/Not Noted Skin: Wound on nose bridge, left fifth toe wound Brody: 17 Diet Order: CCHO, Chopped Estimated Energy Needs: ( Geriatric, CBW) 2168-0586 kcals (25-30 kcals/ kg) 65-80g Pro (1.0-1.2 g/kg) 6847-4273 ml (25-30 ml/kg) Current Diet Order/ Nutrition Support CCHO, Chopped Patient / S.O Can Pertinent Medications Maalox (PRN), Albuterol (PRN), Glutose 40% (PRN), Glucagen ( PRN), INS-SS, MOM (PRN), Glucophage, Theragran, Januvia , Flomax Pertinent Labs POC Glucose (last 24 hrs): 106 , 171, 108, 96, 179 07/17 Na 130, Glucose 135, T Pro 6.1, Alb 3.3, A1C 5.8% Nutritional Hx/Data Height 1.7 m Height (Calculated Centimeters) 170.2 Current Weight (lbs) 63.503 kg Weight (Calculated Kilograms) 63.5 Weight (Calculated Grams) 22028.9 [place] Body Weight 148 lbs (67.27kg) Body Mass Index (BMI) 21.9 Weight Status Approriate GI Symptoms GI Symptoms None Last BM 07/19 x1 Usual diet at home lots of broths Skin Integrity/Comment: Skin: Wound on nose bridge, left fifth toe wound Brody: 17 Current %PO Fair (50-74%) Estimated Nutritional Goals BEE in Kcals: Using Current wt Calories/Kcals/Kg 25-30 Kcals Calculated 5742-6382 Protein: Using Current wt Protein g/k.0-1.2 Protein Calculated 65-80 Fluid: ml 2092-3623 ml (25-30 ml/kg) Nutritional Problem 1. Problem Problem Impaired nutrient utilization Etiology r/t endocrine dysfunction Signs/Symptoms: aeb labs 07/17 Glucose 135, 5/ POC Glucose 106, 171, 108, 96 , 179 and A1C 5.8%. Malnutrition Related to Morbid Obesity Malnutrition related to morbid obesity No Intervention/Recommendation Comments 1.Continue CCHO, chopped diet as tolerated. 2.Continue antihyperglycemic medication for glucose control per MD order. Expected Outcomes/Goals Expected Outcomes/Goals 1.PO intake to meet 75% of estimated nutritional needs. 2.Monitor PO intake, wt, nutrition related labs, and skin integrity to trend WNL. 3.F/U as low risk in 7-10 days , 07/27-07/30.
--- NOTE | 2019-07-24 19:41 | Progress Notes ---
DATE: 07/24/2019 SUBJECTIVE: An 83-year-old male, currently in the hospital, seems to be showing some signs of improvement, calmer on exam. Staff noting he has been sleeping significantly better and seems to be less restless, still in a Nora chair. No overt psychotic symptoms. I tried to talk to him, but his Kyrgyz is pretty limited. I spoke with the family last week. He knows that he is demented, confused. Most of the history was from family. I reviewed the chart, discussed with nursing staff at length. Medications were reviewed. Labs were reviewed. Vitals were reviewed. No overt side effects. Tolerant of Seroquel. No EPS, no akathisia or oversedation. MENTAL STATUS EXAMINATION: In a Nora chair, calm, more cooperative, more engaged, awake, alert, but still confused. No overt psychosis. DIAGNOSIS: Dementia, dementia with behaviors; mood, unspecified; anxiety, unspecified; psychosis, unspecified. ASSESSMENT: An 83-year-old male demented. He was having delusions, delusions about being kidnapped. These ideations seemed to be lessening. He is not acting out on any of these psychotic symptoms. PLAN: We will continue inpatient monitoring. We will attempt to coordinate care with social science research assistant regarding a safe discharge plan. Family was seeking a step-down eventually to a convalescent home. JOB# [id number]
[2019-07-25] MEDS: INSULIN LISPRO SLIDING SCALE 100 UNITS/ML UNIT SUBQ SCH ×4 (07:19→20:37)
[2019-07-25] MEDS: Multivitamin Tab PO SCH (08:35)
[2019-07-25] MEDS: Therahoney Gel 42.5gm Tube TP SCH (08:35)
[2019-07-25] MEDS: Triple Antibiotic 0.94 gm Pkt TP SCH ×2 (08:41→16:45)
--- NOTE | 2019-07-25 11:42 | Progress Notes ---
DATE: 07/25/2019 SUBJECTIVE: An 83-year-old male, currently in the hospital, calm, seems to be showing some signs of improvement. Time was spent with the patient trying to speak with the patient, he is pretty confused, limited historian. I was able to spend time with staff, discussed with staff. Reviewed nursing notes. Slept on and off about 4 hours, still somewhat impulsive, unpredictable, psychotic symptoms dissipating, decreasing. No overt paranoias. Medications were reviewed. Labs were reviewed. Vitals reviewed, blood pressure 96/58, pulse of 106. MENTAL STATUS EXAMINATION: Stated age, fair eye contact, calm. Generally cooperative, sleeping better, more well rested appearing. Limited historian. Better impulse control. PLAN: I will continue inpatient monitoring. Continue dosing of Seroquel, monitor his vitals. We are also working on a safe disposition. JOB# [id number]
--- NOTE | 2019-07-25 13:15 | Internal Medicine Prog Note ---
Internal Medicine Subjective - Subjective Patient seen and examined:: with staff, chart reviewed Patient is:: awake, verbal, interactive, jaret chair, confused Per staff patient has:: no adverse event, no episodes of fall, poor appetite, poor oral intake, noncompliant, refusing care Internal Medicine Objective - Results Recent Labs: Laboratory Last Values POC Glucose 104 MG/DL (70 - 105) 07/25/19 12:24 - Physical Exam Vitals and I&O: Vital Signs Temp 97.6 F 07/25/19 06:14 Pulse 108 07/25/19 08:39 Resp 19 07/25/19 08:00 BP 102/58 07/25/19 08:39 Pulse Ox 95 07/25/19 06:14 Intake & Output 07/24/19 07/25/19 07/25/19 18:59 06:59 18:59 Intake Total 1000 360 Output Total 1 Balance 1000 359 Intake: Oral 1000 360 Output: Urine/Stool Mix 1 Other: # Voids 4 2 # Bowel Movements 0 0 Active Medications: Current Medications Acetaminophen (Tylenol) 650 mg PO Q4H PRN PRN Reason: Pain (Mild 1-3) Stop: 09/16/19 18:21 Last Admin: 07/23/19 15:30 Dose: 650 mg Al Hydrox/Mg Hydrox/Simethicone (Maalox) 30 ml PO Q4HR PRN PRN Reason: GI DISTRESS Stop: 09/16/19 22:35 Albuterol Sulfate (Albuterol 2.5mg/3ml Neb Ud) 2.5 mg HHN QIDRT PRN PRN Reason: Shortness of Breath or Wheeze Stop: 09/16/19 18:59 Benazepril HCl (Lotensin) 10 mg PO BID [facility] Stop: 09/17/19 08:59 Last Admin: 07/25/19 08:39 Dose: Not Given Dextrose (Glutose 40%) 18.75 gm PO PRN PRN PRN Reason: BS Below 70 if tolerate po Stop: 09/16/19 18:22 Glucagon (Glucagen) 1 mg IM PRN PRN PRN Reason: BS Below 70 if not tolerate po Stop: 09/16/19 18:22 Insulin Human Lispro (Humalog Insulin Sliding Scale) 0 units SUBQ ACHS [facility]; Protocol Stop: 09/16/19 20:59 Last Admin: 07/25/19 12:25 Dose: Not Given Lorazepam (Ativan) 0.5 mg PO Q4HR PRN; Protocol PRN Reason: Anxiety Stop: 08/17/19 22:35 Last Admin: 07/21/19 16:36 Dose: 0.5 mg Magnesium Hydroxide (Milk Of Magnesia) 30 ml PO HS PRN PRN Reason: Constipation Metformin HCl (Glucophage) 500 mg PO BIDWM [facility] Stop: 09/17/19 08:59 Last Admin: 07/25/19 07:57 Dose: 500 mg Multivitamins/Vitamin C (Theragran) 1 tab PO DAILY [facility] Stop: 09/17/19 08:59 Last Admin: 07/25/19 08:35 Dose: 1 tab Neomycin/Polymyxin/Bacitracin (Triple Antibiotic Pkt) 1 pkt TP BID [facility] Stop: 09/20/19 08:59 Last Admin: 07/25/19 08:41 Dose: 1 pkt Pregabalin (Lyrica) 100 mg PO BID [facility] Stop: 09/17/19 08:59 Last Admin: 07/25/19 08:35 Dose: 100 mg Quetiapine Fumarate (Seroquel) 25 mg PO HS [facility]; Protocol Stop: 09/23/19 20:59 Simvastatin (Zocor) 20 mg PO HS [facility]; Protocol Stop: 09/16/19 20:59 Last Admin: 07/24/19 21:45 Dose: 20 mg Sitagliptin Phosphate (Januvia) 50 mg PO BID [facility] Stop: 09/17/19 08:59 Last Admin: 07/25/19 08:36 Dose: 50 mg Tamsulosin HCl (Flomax) 0.4 mg PO DAILY [facility] Stop: 09/19/19 12:26 Last Admin: 07/25/19 08:35 Dose: 0.4 mg Wound Care/Dressing Products (Therahoney) 1 appl TP DAILY [facility] Stop: 09/18/19 11:14 Last Admin: 07/25/19 08:35 Dose: 1 appl Zolpidem Tartrate (Ambien) 10 mg PO HS PRN PRN Reason: Insomnia Stop: 09/16/19 23:00 Last Admin: 07/24/19 21:45 Dose: 10 mg General: thin HEENT: NC/AT, PERRLA, EOMI Neck: Supple, No JVD, No thyromegaly, No LAD Lungs: CTAB Cardiovascular: RRR, Normal S1, Normal S2, with murmur Abdomen: soft, non-tender, non-distended, positive bowel sound Extremities: clear Internal Medicine Assmt/Plan - Assessment Assessment: ASSESSMENT AND PLAN: Diabetes, hypertension, hypercholesterolemia, peripheral neuropathy. bph - Plan Plan: PLAN: Continue the patient on ADA diet and insulin sliding scale. We will continue on his oral hypoglycemic medications. We will continue metformin and Januvia. Continue on angiotensin converting enzyme inhibitor as well as Lyrica for neuropathy and a statin for hyperlipidemia. will add flomax Nutritional Asmnt/Malnutr-PDOC - Dietary Evaluation Malnutrition Findings (Please click <Entered> for more info): Nutritional Asmnt/Malnutrition Start: 07/21/19 14: 03 Text: Status: Complete Freq: Protocol: Document 07/21/19 14:03 JASBIR (Rec: 07/21/19 14:10 [email or web address] [id number]) Nutritional Asmnt/Malnutrition Patient General Information Nutritional Screening Moderate Risk Low Risk Diagnosis Psychosis Pertinent Medical Hx/Surgical Hx HTN, DM, Hypercholesterolemia, Alzheimers Subjective Information Pt is a 83-year-old male admitted on 07/17 d/t aggressive combative behaviors , paranoias. Pt is eating an estimated 70% of meals per CORPORATE COMMUNICATIONS MANAGER account. Dietary is currently providing an estimated 2500 kcals and 128 gm Pro, per Pt PO intake this is providing an estimated 1750 kcals and 90gm Pro to meet 100% kcal and 100 +% Pro needs. Pt receives Glucerna TID with snacks per pt request. Spoke with pt yesterday as group social worker was told by pts that he eats a liquid diet at home and was having trouble chewing. Pt stated he does not need a liquid diet, he does enjoy soups but can chew just fine. Pt does require assistance when eating. Pt. is adequately meeting estimated nutritional needs, has not had any Glucerna. Discounting Glucerna TID, will continue to monitor PO intake. Anthropometrics HT: 57 WT: 140 LB (63.63 kg) BMI: 21.92 (Normal) GI/ Skin Integrity GI: WNL, Soft, Non-tender, flat BM: 07/19 x1 I/O: 1440/Not Noted Skin: Wound on nose bridge, left fifth toe wound Brody: 17 Diet Order: CCHO, Chopped Estimated Energy Needs: ( Geriatric, CBW) 8460-3223 kcals (25-30 kcals/ kg) 65-80g Pro (1.0-1.2 g/kg) 7381-5588 ml (25-30 ml/kg) Current Diet Order/ Nutrition Support CCHO, Chopped Patient / S.O Can Pertinent Medications Maalox (PRN), Albuterol (PRN), Glutose 40% (PRN), Glucagen ( PRN), INS-SS, MOM (PRN), Glucophage, Theragran, Januvia , Flomax Pertinent Labs POC Glucose (last 24 hrs): 106 , 171, 108, 96, 179 07/17 Na 130, Glucose 135, T Pro 6.1, Alb 3.3, A1C 5.8% Nutritional Hx/Data Height 1.7 m Height (Calculated Centimeters) 170.2 Current Weight (lbs) 63.503 kg Weight (Calculated Kilograms) 63.5 Weight (Calculated Grams) 62443.9 Cotton Body Weight 148 lbs (67.27kg) Body Mass Index (BMI) 21.9 Weight Status Approriate GI Symptoms GI Symptoms None Last BM 07/19 x1 Usual diet at home lots of broths Skin Integrity/Comment: Skin: Wound on nose bridge, left fifth toe wound Brody: 17 Current %PO Fair (50-74%) Estimated Nutritional Goals BEE in Kcals: Using Current wt Calories/Kcals/Kg 25-30 Kcals Calculated 7735-8174 Protein: Using Current wt Protein g/k.0-1.2 Protein Calculated 65-80 Fluid: ml 6061-7274 ml (25-30 ml/kg) Nutritional Problem 1. Problem Problem Impaired nutrient utilization Etiology r/t endocrine dysfunction Signs/Symptoms: aeb labs 07/17 Glucose 135, 07/20 POC Glucose 106, 171, 108, 96 , 179 and A1C 5.8%. Malnutrition Related to Morbid Obesity Malnutrition related to morbid obesity No Intervention/Recommendation Comments 1.Continue CCHO, chopped diet as tolerated. 2.Continue antihyperglycemic medication for glucose control per MD order. Expected Outcomes/Goals Expected Outcomes/Goals 1.PO intake to meet 75% of estimated nutritional needs. 2.Monitor PO intake, wt, nutrition related labs, and skin integrity to trend WNL. 3.F/U as low risk in 7-10 days , 07/27-07/30.
[2019-07-26] MEDS: INSULIN LISPRO SLIDING SCALE 100 UNITS/ML UNIT SUBQ SCH ×4 (07:02→20:58)
[2019-07-26] MEDS: Multivitamin Tab PO SCH (08:33)
[2019-07-26] MEDS: Triple Antibiotic 0.94 gm Pkt TP SCH ×2 (08:33→17:19)
[2019-07-26] MEDS: Therahoney Gel 42.5gm Tube TP SCH (11:39)
--- NOTE | 2019-07-26 13:28 | Internal Medicine Prog Note ---
Internal Medicine Subjective - Subjective Patient seen and examined:: with staff, chart reviewed Patient is:: awake, verbal, interactive, jaret chair, confused Per staff patient has:: no adverse event, no episodes of fall, poor appetite, poor oral intake, noncompliant, refusing care Internal Medicine Objective - Results Recent Labs: Laboratory Last Values POC Glucose 110 MG/DL (70 - 105) H 07/26/19 11:29 - Physical Exam Vitals and I&O: Vital Signs Temp 97.9 F 07/26/19 05:59 Pulse 110 07/26/19 08:34 Resp 20 07/26/19 05:59 BP 125/57 07/26/19 08:34 Pulse Ox 96 07/26/19 05:59 Intake & Output 07/25/19 07/26/19 07/26/19 18:59 06:59 18:59 Intake Total 880 120 Balance 880 120 Intake: Oral 640 120 Other 240 Other: # Voids 3 3 # Bowel Movements 0 0 Active Medications: Current Medications Acetaminophen (Tylenol) 650 mg PO Q4H PRN PRN Reason: Pain (Mild 1-3) Stop: 09/16/19 18:21 Last Admin: 07/23/19 15:30 Dose: 650 mg Al Hydrox/Mg Hydrox/Simethicone (Maalox) 30 ml PO Q4HR PRN PRN Reason: GI DISTRESS Stop: 09/16/19 22:35 Albuterol Sulfate (Albuterol 2.5mg/3ml Neb Ud) 2.5 mg HHN QIDRT PRN PRN Reason: Shortness of Breath or Wheeze Stop: 09/16/19 18:59 Benazepril HCl (Lotensin) 10 mg PO BID [facility] Stop: 09/17/19 08:59 Last Admin: 07/26/19 08:34 Dose: 10 mg Cephalexin Monohydrate (Keflex) 500 mg PO TID [facility] Stop: 09/23/19 16:59 Last Admin: 07/26/19 08:33 Dose: 500 mg Dextrose (Glutose 40%) 18.75 gm PO PRN PRN PRN Reason: BS Below 70 if tolerate po Stop: 09/16/19 18:22 Glucagon (Glucagen) 1 mg IM PRN PRN PRN Reason: BS Below 70 if not tolerate po Stop: 09/16/19 18:22 Insulin Human Lispro (Humalog Insulin Sliding Scale) 0 units SUBQ ACHS [facility]; Protocol Stop: 09/16/19 20:59 Last Admin: 07/26/19 11:37 Dose: Not Given Lorazepam (Ativan) 0.5 mg PO Q4HR PRN; Protocol PRN Reason: Anxiety Stop: 08/17/19 22:35 Last Admin: 07/26/19 04:09 Dose: 0.5 mg Magnesium Hydroxide (Milk Of Magnesia) 30 ml PO HS PRN PRN Reason: Constipation Metformin HCl (Glucophage) 500 mg PO BIDWM [facility] Stop: 09/17/19 08:59 Last Admin: 07/26/19 08:34 Dose: 500 mg Multivitamins/Vitamin C (Theragran) 1 tab PO DAILY [facility] Stop: 09/17/19 08:59 Last Admin: 07/26/19 08:33 Dose: 1 tab Neomycin/Polymyxin/Bacitracin (Triple Antibiotic Pkt) 1 pkt TP BID [facility] Stop: 09/20/19 08:59 Last Admin: 07/26/19 08:33 Dose: 1 pkt Pregabalin (Lyrica) 100 mg PO BID [facility] Stop: 09/17/19 08:59 Last Admin: 07/26/19 08:34 Dose: 100 mg Quetiapine Fumarate (Seroquel) 25 mg PO HS [facility]; Protocol Stop: 09/23/19 20:59 Last Admin: 07/25/19 20:32 Dose: 25 mg Simvastatin (Zocor) 20 mg PO HS [facility]; Protocol Stop: 09/16/19 20:59 Last Admin: 07/25/19 20:31 Dose: 20 mg Sitagliptin Phosphate (Januvia) 50 mg PO BID [facility] Stop: 09/17/19 08:59 Last Admin: 07/26/19 08:35 Dose: 50 mg Tamsulosin HCl (Flomax) 0.4 mg PO DAILY [facility] Stop: 09/19/19 12:26 Last Admin: 07/26/19 08:35 Dose: 0.4 mg Wound Care/Dressing Products (Therahoney) 1 appl TP DAILY [facility] Stop: 09/18/19 11:14 Last Admin: 07/26/19 11:39 Dose: Not Given Zolpidem Tartrate (Ambien) 10 mg PO HS PRN PRN Reason: Insomnia Stop: 09/16/19 23:00 Last Admin: 07/25/19 20:32 Dose: 10 mg General: thin HEENT: NC/AT, PERRLA, EOMI Neck: Supple, No JVD, No thyromegaly, No LAD Lungs: CTAB Cardiovascular: RRR, Normal S1, Normal S2, with murmur Abdomen: soft, non-tender, non-distended, positive bowel sound Extremities: clear Internal Medicine Assmt/Plan - Assessment Assessment: ASSESSMENT AND PLAN: Diabetes, hypertension, hypercholesterolemia, peripheral neuropathy. bph l 5th digit nonhealing wound - Plan Plan: PLAN: Continue the patient on ADA diet and insulin sliding scale. We will continue on his oral hypoglycemic medications. We will continue metformin and Januvia. Continue on angiotensin converting enzyme inhibitor as well as Lyrica for neuropathy and a statin for hyperlipidemia. will add flomax add keflex ble arterial us add miralax dw cm and rn Nutritional Asmnt/Malnutr-PDOC - Dietary Evaluation Malnutrition Findings (Please click <Entered> for more info): Nutritional Asmnt/Malnutrition Start: 07/21/19 14: 03 Text: Status: Complete Freq: Protocol: Document 07/21/19 14:03 JASBIR (Rec: 07/21/19 14:10 JASBIR [email or web address]) Nutritional Asmnt/Malnutrition Patient General Information Nutritional Screening Moderate Risk Low Risk Diagnosis Psychosis Pertinent Medical Hx/Surgical Hx HTN, DM, Hypercholesterolemia, Alzheimers Subjective Information Pt is a 83-year-old male admitted on 07/17 d/t aggressive combative behaviors , paranoias. Pt is eating an estimated 70% of meals per VASCULAR SURGERY PHYSICIAN account. Dietary is currently providing an estimated 2500 kcals and 128 gm Pro, per Pt PO intake this is providing an estimated 1750 kcals and 90gm Pro to meet 100% kcal and 100 +% Pro needs. Pt receives Glucerna TID with snacks per pt request. Spoke with pt yesterday as social media analyst was told by pts that he eats a liquid diet at home and was having trouble chewing. Pt stated he does not need a liquid diet, he does enjoy soups but can chew just fine. Pt does require assistance when eating. Pt. is adequately meeting estimated nutritional needs, has not had any Glucerna. Discounting Glucerna TID, will continue to monitor PO intake. Anthropometrics HT: 57 WT: 140 LB (63.63 kg) BMI: 21.92 (Normal) GI/ Skin Integrity GI: WNL, Soft, Non-tender, flat BM: 07/19 x1 I/O: 1440/Not Noted Skin: Wound on nose bridge, left fifth toe wound Brody: 17 Diet Order: CCHO, Chopped Estimated Energy Needs: ( Geriatric, CBW) 5587-9048 kcals (25-30 kcals/ kg) 65-80g Pro (1.0-1.2 g/kg) 3070-9684 ml (25-30 ml/kg) Current Diet Order/ Nutrition Support CCHO, Chopped Patient / S.O Can Pertinent Medications Maalox (PRN), Albuterol (PRN), Glutose 40% (PRN), Glucagen ( PRN), INS-SS, MOM (PRN), Glucophage, Theragran, Januvia , Flomax Pertinent Labs POC Glucose (last 24 hrs): 106 , 171, 108, 96, 179 07/17 Na 130, Glucose 135, T Pro 6.1, Alb 3.3, A1C 5.8% Nutritional Hx/Data Height 1.7 m Height (Calculated Centimeters) 170.2 Current Weight (lbs) 63.503 kg Weight (Calculated Kilograms) 63.5 Weight (Calculated Grams) 25242.9 [employer] Body Weight 148 lbs (67.27kg) Body Mass Index (BMI) 21.9 Weight Status Approriate GI Symptoms GI Symptoms None Last BM 07/19 x1 Usual diet at home lots of broths Skin Integrity/Comment: Skin: Wound on nose bridge, left fifth toe wound Brody: 17 Current %PO Fair (50-74%) Estimated Nutritional Goals BEE in Kcals: Using Current wt Calories/Kcals/Kg 25-30 Kcals Calculated 6157-9111 Protein: Using Current wt Protein g/k.0-1.2 Protein Calculated 65-80 Fluid: ml 8643-8393 ml (25-30 ml/kg) Nutritional Problem 1. Problem Problem Impaired nutrient utilization Etiology r/t endocrine dysfunction Signs/Symptoms: aeb labs 07/17 Glucose 135, 5/1 POC Glucose 106, 171, 108, 96 , 179 and A1C 5.8%. Malnutrition Related to Morbid Obesity Malnutrition related to morbid obesity No Intervention/Recommendation Comments 1.Continue CCHO, chopped diet as tolerated. 2.Continue antihyperglycemic medication for glucose control per MD order. Expected Outcomes/Goals Expected Outcomes/Goals 1.PO intake to meet 75% of estimated nutritional needs. 2.Monitor PO intake, wt, nutrition related labs, and skin integrity to trend WNL. 3.F/U as low risk in 7-10 days , 07/27-07/30.
[2019-07-26] MEDS: POLYETHYLENE GLYCOL 3350 17 GM PACK PO SCH (14:30)
--- NOTE | 2019-07-26 19:17 | Progress Notes ---
DATE: 07/26/2019 SUBJECTIVE: The patient in the hospital on a Nora chair, still with some periods of restlessness, but likely approaching his baseline, not particularly agitated or combative, just very confused, disoriented, able to make basic needs known, but mostly AO to name only, just says antwon tanner on exam. We are trying to get the patient into a nursing home facility. Family cannot take him home. The patient able to follow commands. Medications were reviewed. Labs were reviewed. Vitals were reviewed. MENTAL STATUS EXAMINATION: Stated age, fair eye contact, calm, confused, disoriented. No overt agitation. DIAGNOSIS: Dementia. PLAN: Continue dosing of Seroquel per nursing staff. He seems to be sleeping somewhat better, short intervals. No overt agitation or escalation of behaviors. JOB# [id number]
[2019-07-27] MEDS: INSULIN LISPRO SLIDING SCALE 100 UNITS/ML UNIT SUBQ SCH ×4 (06:40→21:00)
[2019-07-27] MEDS: Triple Antibiotic 0.94 gm Pkt TP SCH ×2 (09:21→17:28)
[2019-07-27] MEDS: POLYETHYLENE GLYCOL 3350 17 GM PACK PO SCH (09:22)
[2019-07-27] MEDS: Therahoney Gel 42.5gm Tube TP SCH (09:27)
[2019-07-27] MEDS: Multivitamin Tab PO SCH (09:27)
--- NOTE | 2019-07-27 13:35 | Internal Medicine Prog Note ---
Internal Medicine Subjective - Subjective Patient seen and examined:: with staff, chart reviewed Patient is:: awake, verbal, interactive, jaret chair, confused Per staff patient has:: no adverse event, no episodes of fall, poor appetite, poor oral intake, noncompliant, refusing care Internal Medicine Objective - Results Recent Labs: Laboratory Last Values POC Glucose 126 MG/DL (70 - 105) H 07/27/19 12:04 - Physical Exam Vitals and I&O: Vital Signs Temp 98.6 F 07/27/19 06:19 Pulse 105 07/27/19 09:27 Resp 20 07/27/19 08:00 BP 109/49 07/27/19 09:27 Pulse Ox 96 07/27/19 06:19 Intake & Output 07/26/19 07/27/19 07/27/19 18:59 06:59 18:59 Intake Total 760 120 Balance 760 120 Intake: Oral 760 120 Other: # Voids 2 1 # Bowel Movements 0 0 Active Medications: Current Medications Acetaminophen (Tylenol) 650 mg PO Q4H PRN PRN Reason: Pain (Mild 1-3) Stop: 09/16/19 18:21 Last Admin: 07/23/19 15:30 Dose: 650 mg Al Hydrox/Mg Hydrox/Simethicone (Maalox) 30 ml PO Q4HR PRN PRN Reason: GI DISTRESS Stop: 09/16/19 22:35 Albuterol Sulfate (Albuterol 2.5mg/3ml Neb Ud) 2.5 mg HHN QIDRT PRN PRN Reason: Shortness of Breath or Wheeze Stop: 09/16/19 18:59 Benazepril HCl (Lotensin) 10 mg PO BID [facility] Stop: 09/17/19 08:59 Last Admin: 07/27/19 09:27 Dose: Not Given [place] Oil/[place] Balsam/Trypsin (Venelex) 1 appl TP DAILY [facility] Stop: 09/25/19 12:29 Cephalexin Monohydrate (Keflex) 500 mg PO TID [facility] Stop: 09/23/19 16:59 Last Admin: 07/27/19 09:22 Dose: 500 mg Dextrose (Glutose 40%) 18.75 gm PO PRN PRN PRN Reason: BS Below 70 if tolerate po Stop: 09/16/19 18:22 Glucagon (Glucagen) 1 mg IM PRN PRN PRN Reason: BS Below 70 if not tolerate po Stop: 09/16/19 18:22 Insulin Human Lispro (Humalog Insulin Sliding Scale) 0 units SUBQ ACHS [facility]; Protocol Stop: 09/16/19 20:59 Last Admin: 07/27/19 12:07 Dose: Not Given Lorazepam (Ativan) 0.5 mg PO Q4HR PRN; Protocol PRN Reason: Anxiety Stop: 08/17/19 22:35 Last Admin: 07/26/19 04:09 Dose: 0.5 mg Magnesium Hydroxide (Milk Of Magnesia) 30 ml PO HS PRN PRN Reason: Constipation Metformin HCl (Glucophage) 500 mg PO BIDWM [facility] Stop: 09/17/19 08:59 Last Admin: 07/27/19 09:00 Dose: 500 mg Multivitamins/Vitamin C (Theragran) 1 tab PO DAILY [facility] Stop: 09/17/19 08:59 Last Admin: 07/27/19 09:27 Dose: 1 tab Neomycin/Polymyxin/Bacitracin (Triple Antibiotic Pkt) 1 pkt TP BID [facility] Stop: 09/20/19 08:59 Last Admin: 07/27/19 09:21 Dose: 1 pkt Polyethylene Glycol (Miralax) 17 gm PO DAILY [facility] Stop: 09/24/19 13:25 Last Admin: 07/27/19 09:22 Dose: 17 gm Pregabalin (Lyrica) 100 mg PO BID [facility] Stop: 09/17/19 08:59 Last Admin: 07/27/19 09:22 Dose: 100 mg Quetiapine Fumarate (Seroquel) 25 mg PO HS [facility]; Protocol Stop: 09/23/19 20:59 Last Admin: 07/26/19 21:22 Dose: 25 mg Simvastatin (Zocor) 20 mg PO HS [facility]; Protocol Stop: 09/16/19 20:59 Last Admin: 07/26/19 21:23 Dose: 20 mg Sitagliptin Phosphate (Januvia) 50 mg PO BID [facility] Stop: 09/17/19 08:59 Last Admin: 07/27/19 09:22 Dose: 50 mg Tamsulosin HCl (Flomax) 0.4 mg PO DAILY [facility] Stop: 09/19/19 12:26 Last Admin: 07/27/19 09:22 Dose: 0.4 mg Zolpidem Tartrate (Ambien) 10 mg PO HS PRN PRN Reason: Insomnia Stop: 09/16/19 23:00 Last Admin: 07/26/19 21:23 Dose: 10 mg General: thin HEENT: NC/AT, PERRLA, EOMI Neck: Supple, No JVD, No thyromegaly, No LAD Lungs: CTAB Cardiovascular: RRR, Normal S1, Normal S2, with murmur Abdomen: soft, non-tender, non-distended, positive bowel sound Extremities: clear Internal Medicine Assmt/Plan - Assessment Assessment: ASSESSMENT AND PLAN: Diabetes, hypertension, hypercholesterolemia, peripheral neuropathy. bph l 5th digit nonhealing wound - Plan Plan: PLAN: Continue the patient on ADA diet and insulin sliding scale. We will continue on his oral hypoglycemic medications. We will continue metformin and Januvia. Continue on angiotensin converting enzyme inhibitor as well as Lyrica for neuropathy and a statin for hyperlipidemia. will add flomax add keflex ble arterial us add miralax dw cm and rn Nutritional Asmnt/Malnutr-PDOC - Dietary Evaluation Malnutrition Findings (Please click <Entered> for more info): Nutritional Asmnt/Malnutrition Start: 07/21/19 14: 03 Text: Status: Complete Freq: Protocol: Document 07/21/19 14:03 JASBIR (Rec: 07/21/19 14:10 [email or web address] [email or web address]) Nutritional Asmnt/Malnutrition Patient General Information Nutritional Screening Moderate Risk Low Risk Diagnosis Psychosis Pertinent Medical Hx/Surgical Hx HTN, DM, Hypercholesterolemia, Alzheimers Subjective Information Pt is a 83-year-old male admitted on 07/17 d/t aggressive combative behaviors , paranoias. Pt is eating an estimated 70% of meals per [employer] account. Dietary is currently providing an estimated 2500 kcals and 128 gm Pro, per Pt PO intake this is providing an estimated 1750 kcals and 90gm Pro to meet 100% kcal and 100 +% Pro needs. Pt receives Glucerna TID with snacks per pt request. 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 Pt stated he does not need a liquid diet, he does enjoy soups but can chew just fine. Pt does require assistance when eating. Pt. is adequately meeting estimated nutritional needs, has not had any Glucerna. Discounting Glucerna TID, will continue to monitor PO intake. Anthropometrics HT: 57 WT: 140 LB (63.63 kg) BMI: 21.92 (Normal) GI/ Skin Integrity GI: WNL, Soft, Non-tender, flat BM: 07/19 x1 I/O: 1440/Not Noted Skin: Wound on nose bridge, left fifth toe wound Brody: 17 Diet Order: CCHO, Chopped Estimated Energy Needs: ( Geriatric, CBW) 0367-8025 kcals (25-30 kcals/ kg) 65-80g Pro (1.0-1.2 g/kg) 5042-7257 ml (25-30 ml/kg) Current Diet Order/ Nutrition Support CCHO, Chopped Patient / S.O Can Pertinent Medications Maalox (PRN), Albuterol (PRN), Glutose 40% (PRN), Glucagen ( PRN), INS-SS, MOM (PRN), Glucophage, Theragran, Januvia , Flomax Pertinent Labs POC Glucose (last 24 hrs): 106 , 171, 108, 96, 179 07/17 Na 130, Glucose 135, T Pro 6.1, Alb 3.3, A1C 5.8% Nutritional Hx/Data Height 1.7 m Height (Calculated Centimeters) 170.2 Current Weight (lbs) 63.503 kg Weight (Calculated Kilograms) 63.5 Weight (Calculated Grams) 94946.9 [place] Body Weight 148 lbs (67.27kg) Body Mass Index (BMI) 21.9 Weight Status Approriate GI Symptoms GI Symptoms None Last BM 07/19 x1 Usual diet at home lots of broths Skin Integrity/Comment: Skin: Wound on nose bridge, left fifth toe wound Brody: 17 Current %PO Fair (50-74%) Estimated Nutritional Goals BEE in Kcals: Using Current wt Calories/Kcals/Kg 25-30 Kcals Calculated 3860-3037 Protein: Using Current wt Protein g/k.0-1.2 Protein Calculated 65-80 Fluid: ml 2089-7204 ml (25-30 ml/kg) Nutritional Problem 1. Problem Problem Impaired nutrient utilization Etiology r/t endocrine dysfunction Signs/Symptoms: aeb labs 07/17 Glucose 135, 07/20 POC Glucose 106, 171, 108, 96 , 179 and A1C 5.8%. Malnutrition Related to Morbid Obesity Malnutrition related to morbid obesity No Intervention/Recommendation Comments 1.Continue CCHO, chopped diet as tolerated. 2.Continue antihyperglycemic medication for glucose control per MD order. Expected Outcomes/Goals Expected Outcomes/Goals 1.PO intake to meet 75% of estimated nutritional needs. 2.Monitor PO intake, wt, nutrition related labs, and skin integrity to trend WNL. 3.F/U as low risk in 7-10 days , 07/27-07/30.
[2019-07-27] MEDS: Venelex 60gm Tube TP SCH (17:53)
--- NOTE | 2019-07-27 21:10 | Progress Notes ---
DATE: 07/27/2019 Case was discussed with staff of the patient, reviewed records. Covering for Dr. Pradhan. This is an 83-year-old male who was admitted on 07/18/2019 because of aggressive, combative behavior, confused, irritable, disorganized, poor sleep, poor appetite and trying to leave the house, paranoid. Family cannot really control him. The patient oriented to name only. Diagnosed dementia according to Dr. Walker. He is currently living at home with his family. Have family involvement. The patient having behavior disturbances. MENTAL STATUS EXAMINATION: The patient continues to be overwhelmed. He is restless. He is on a Nora chair, decreased agitation, combative behavior, but still very confused, disoriented, unable to make basic decisions, oriented to name only. PLAN: The plan is for the patient to go to a nursing facility as the family cannot take care of him at home. They are very involved in caring. No side effects with the medication, no sedation, no nausea and no side effects. He is on Seroquel 0.25 mg at bedtime. We will continue to work with the patient in group therapy, milieu therapy, adjust medication as needed. JOB# [id number]
[2019-07-28] MEDS: INSULIN LISPRO SLIDING SCALE 100 UNITS/ML UNIT SUBQ SCH ×4 (06:34→20:31)
[2019-07-28] MEDS: Multivitamin Tab PO SCH (08:16)
[2019-07-28] MEDS: POLYETHYLENE GLYCOL 3350 17 GM PACK PO SCH (08:28)
--- NOTE | 2019-07-28 12:42 | Internal Medicine Prog Note ---
Internal Medicine Subjective - Subjective Patient seen and examined:: with staff, chart reviewed Patient is:: awake, verbal, interactive, jaret chair, confused Per staff patient has:: no adverse event, no episodes of fall, poor appetite, poor oral intake, noncompliant, refusing care Internal Medicine Objective - Results Recent Labs: Laboratory Last Values POC Glucose 100 MG/DL (70 - 105) 07/28/19 11:58 - Physical Exam Vitals and I&O: Vital Signs Temp 98 F 07/28/19 06:27 Pulse 111 07/28/19 08:23 Resp 20 07/28/19 08:00 BP 94/56 07/28/19 08:23 Pulse Ox 95 07/28/19 06:27 Intake & Output 07/27/19 07/28/19 07/28/19 18:59 06:59 18:59 Intake Total 900 120 Balance 900 120 Intake: Oral 900 120 Other: # Voids 3 3 # Bowel Movements 1 Active Medications: Current Medications Acetaminophen (Tylenol) 650 mg PO Q4H PRN PRN Reason: Pain (Mild 1-3) Stop: 09/16/19 18:21 Last Admin: 07/23/19 15:30 Dose: 650 mg Al Hydrox/Mg Hydrox/Simethicone (Maalox) 30 ml PO Q4HR PRN PRN Reason: GI DISTRESS Stop: 09/16/19 22:35 Albuterol Sulfate (Albuterol 2.5mg/3ml Neb Ud) 2.5 mg HHN QIDRT PRN PRN Reason: Shortness of Breath or Wheeze Stop: 09/16/19 18:59 Benazepril HCl (Lotensin) 10 mg PO BID [facility] Stop: 09/17/19 08:59 Last Admin: 07/28/19 08:23 Dose: Not Given [place] Oil/[place] Balsam/Trypsin (Venelex) 1 appl TP DAILY [facility] Stop: 09/25/19 12:29 Last Admin: 07/27/19 17:53 Dose: 1 appl Cephalexin Monohydrate (Keflex) 500 mg PO TID [facility] Stop: 09/23/19 16:59 Last Admin: 07/28/19 08:15 Dose: 500 mg Dextrose (Glutose 40%) 18.75 gm PO PRN PRN PRN Reason: BS Below 70 if tolerate po Stop: 09/16/19 18:22 Glucagon (Glucagen) 1 mg IM PRN PRN PRN Reason: BS Below 70 if not tolerate po Stop: 09/16/19 18:22 Insulin Human Lispro (Humalog Insulin Sliding Scale) 0 units SUBQ ACHS [facility]; Protocol Stop: 09/16/19 20:59 Last Admin: 07/28/19 12:04 Dose: Not Given Lorazepam (Ativan) 0.5 mg PO Q4HR PRN; Protocol PRN Reason: Anxiety Stop: 08/17/19 22:35 Last Admin: 07/26/19 04:09 Dose: 0.5 mg Magnesium Hydroxide (Milk Of Magnesia) 30 ml PO HS PRN PRN Reason: Constipation Metformin HCl (Glucophage) 500 mg PO BIDWM [facility] Stop: 09/17/19 08:59 Last Admin: 07/28/19 08:12 Dose: 500 mg Multivitamins/Vitamin C (Theragran) 1 tab PO DAILY [facility] Stop: 09/17/19 08:59 Last Admin: 07/28/19 08:16 Dose: 1 tab Neomycin/Polymyxin/Bacitracin (Triple Antibiotic Pkt) 1 pkt TP BID [facility] Stop: 09/20/19 08:59 Last Admin: 07/27/19 17:28 Dose: 1 pkt Polyethylene Glycol (Miralax) 17 gm PO DAILY [facility] Stop: 09/24/19 13:25 Last Admin: 07/28/19 08:28 Dose: 17 gm Pregabalin (Lyrica) 100 mg PO BID [facility] Stop: 09/17/19 08:59 Last Admin: 07/28/19 08:17 Dose: 100 mg Quetiapine Fumarate (Seroquel) 25 mg PO [facility]; Protocol Stop: 09/23/19 20:59 Last Admin: 07/27/19 21:04 Dose: 25 mg Simvastatin (Zocor) 20 mg PO HS [facility]; Protocol Stop: 09/16/19 20:59 Last Admin: 07/27/19 21:04 Dose: 20 mg Sitagliptin Phosphate (Januvia) 50 mg PO BID [facility] Stop: 09/17/19 08:59 Last Admin: 07/28/19 08:12 Dose: 50 mg Tamsulosin HCl (Flomax) 0.4 mg PO DAILY [facility] Stop: 09/19/19 12:26 Last Admin: 07/28/19 08:16 Dose: 0.4 mg Zolpidem Tartrate (Ambien) 10 mg PO HS PRN PRN Reason: Insomnia Stop: 09/16/19 23:00 Last Admin: 07/26/19 21:23 Dose: 10 mg General: thin HEENT: NC/AT, PERRLA, EOMI Neck: Supple, No JVD, No thyromegaly, No LAD Lungs: CTAB Cardiovascular: RRR, Normal S1, Normal S2, with murmur Abdomen: soft, non-tender, non-distended, positive bowel sound Extremities: clear Internal Medicine Assmt/Plan - Assessment Assessment: ASSESSMENT AND PLAN: Diabetes, hypertension, hypercholesterolemia, peripheral neuropathy. bph l 5th digit nonhealing wound - Plan Plan: PLAN: Continue the patient on ADA diet and insulin sliding scale. We will continue on his oral hypoglycemic medications. We will continue metformin and Januvia. Continue on angiotensin converting enzyme inhibitor as well as Lyrica for neuropathy and a statin for hyperlipidemia. will add flomax add keflex ble arterial us-p add miralax dw cm and rn Nutritional Asmnt/Malnutr-PDOC - Dietary Evaluation Malnutrition Findings (Please click <Entered> for more info): Nutritional Asmnt/Malnutrition Start: 07/21/19 14: 03 Text: Status: Complete Freq: Protocol: Document 07/21/19 14:03 JASBIR (Rec: 07/21/19 14:10 JASBIR [id number]) Nutritional Asmnt/Malnutrition Patient General Information Nutritional Screening Moderate Risk Low Risk Diagnosis Psychosis Pertinent Medical Hx/Surgical Hx HTN, DM, Hypercholesterolemia, Alzheimers Subjective Information Pt is a 83-year-old male admitted on 07/17 d/t aggressive combative behaviors , paranoias. Pt is eating an estimated 70% of meals per [employer] account. Dietary is currently providing an estimated 2500 kcals and 128 gm Pro, per Pt PO intake this is providing an estimated 1750 kcals and 90gm Pro to meet 100% kcal and 100 +% Pro needs. Pt receives Glucerna TID with snacks per pt request. 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 Pt stated he does not need a liquid diet, he does enjoy soups but can chew just fine. Pt does require assistance when eating. Pt. is adequately meeting estimated nutritional needs, has not had any Glucerna. Discounting Glucerna TID, will continue to monitor PO intake. Anthropometrics HT: 57 WT: 140 LB (63.63 kg) BMI: 21.92 (Normal) GI/ Skin Integrity GI: WNL, Soft, Non-tender, flat BM: 07/19 x1 I/O: 1440/Not Noted Skin: Wound on nose bridge, left fifth toe wound Brody: 17 Diet Order: CCHO, Chopped Estimated Energy Needs: ( Geriatric, CBW) 1674-0106 kcals (25-30 kcals/ kg) 65-80g Pro (1.0-1.2 g/kg) 1143-8109 ml (25-30 ml/kg) Current Diet Order/ Nutrition Support CCHO, Chopped Patient / S.O Can Pertinent Medications Maalox (PRN), Albuterol (PRN), Glutose 40% (PRN), Glucagen ( PRN), INS-SS, MOM (PRN), Glucophage, Theragran, Januvia , Flomax Pertinent Labs POC Glucose (last 24 hrs): 106 , 171, 108, 96, 179 07/17 Na 130, Glucose 135, T Pro 6.1, Alb 3.3, A1C 5.8% Nutritional Hx/Data Height 1.7 m Height (Calculated Centimeters) 170.2 Current Weight (lbs) 63.503 kg Weight (Calculated Kilograms) 63.5 Weight (Calculated Grams) 11309.9 [place] Body Weight 148 lbs (67.27kg) Body Mass Index (BMI) 21.9 Weight Status Approriate GI Symptoms GI Symptoms None Last BM 07/19 x1 Usual diet at home lots of broths Skin Integrity/Comment: Skin: Wound on nose bridge, left fifth toe wound Brody: 17 Current %PO Fair (50-74%) Estimated Nutritional Goals BEE in Kcals: Using Current wt Calories/Kcals/Kg 25-30 Kcals Calculated 1676-7930 Protein: Using Current wt Protein g/k.0-1.2 Protein Calculated 65-80 Fluid: ml 7884-8925 ml (25-30 ml/kg) Nutritional Problem 1. Problem Problem Impaired nutrient utilization Etiology r/t endocrine dysfunction Signs/Symptoms: aeb labs 07/17 Glucose 135, 5 POC Glucose 106, 171, 108, 96 , 179 and A1C 5.8%. Malnutrition Related to Morbid Obesity Malnutrition related to morbid obesity No Intervention/Recommendation Comments 1.Continue CCHO, chopped diet as tolerated. 2.Continue antihyperglycemic medication for glucose control per MD order. Expected Outcomes/Goals Expected Outcomes/Goals 1.PO intake to meet 75% of estimated nutritional needs. 2.Monitor PO intake, wt, nutrition related labs, and skin integrity to trend WNL. 3.F/U as low risk in 7-10 days , 07/27-07/30.
[2019-07-28] MEDS: Triple Antibiotic 0.94 gm Pkt TP SCH ×2 (15:38→17:01)
[2019-07-28] MEDS: Venelex 60gm Tube TP SCH (15:39)
--- NOTE | 2019-07-28 20:28 | Progress Notes ---
DATE: 07/28/2019 SUBJECTIVE: Case was discussed with staff of the patient, reviewed records. The patient continues to be overwhelmed, unpredictable, impulsive, confused, disorganized with poor sleep and appetite. Continues to be paranoid. MENTAL STATUS EXAMINATION: The patient is overwhelmed and confused. He is in a geriatric chair. Unable to participate in a meaningful conversation or make safe plan for self-care. He was confused, agitated, disoriented, unable to make safe plan for self-care. PLAN: The patient is going to a nursing facility as the family take care of him at home. There are involved in his caring. No side effects with the medication, no sedation, no nausea, or no extrapyramidal symptoms. The patient actually is on Seroquel 25 mg at bedtime with no side effects, no sedation, no nausea, or no extrapyramidal symptoms. We will continue outpatient group therapy, milieu therapy, adjust medication as needed. JOB# [id number] [email or web address]
[2019-07-29] MEDS: INSULIN LISPRO SLIDING SCALE 100 UNITS/ML UNIT SUBQ SCH ×4 (06:47→20:47)
[2019-07-29] MEDS: Triple Antibiotic 0.94 gm Pkt TP SCH ×2 (08:59→17:20)
[2019-07-29] MEDS: Multivitamin Tab PO SCH (09:00)
[2019-07-29] MEDS: Venelex 60gm Tube TP SCH (09:02)
[2019-07-29] MEDS: POLYETHYLENE GLYCOL 3350 17 GM PACK PO SCH (09:07)
--- NOTE | 2019-07-29 13:24 | Internal Medicine Prog Note ---
Internal Medicine Subjective - Subjective Patient seen and examined:: with staff, chart reviewed Patient is:: awake, verbal, interactive, jaret chair, confused Per staff patient has:: no adverse event, no episodes of fall, poor appetite, poor oral intake, noncompliant, refusing care Internal Medicine Objective - Results Recent Labs: Laboratory Last Values POC Glucose 105 MG/DL (70 - 105) 07/29/19 11:08 - Physical Exam Vitals and I&O: Vital Signs Temp 97.1 F 07/29/19 06:37 Pulse 92 07/29/19 09:00 Resp 19 07/29/19 06:37 BP 132/81 07/29/19 09:00 Pulse Ox 94 07/29/19 06:37 Intake & Output 07/28/19 07/29/19 07/29/19 18:59 06:59 18:59 Intake Total 1220 300 Output Total 1 Balance 1220 299 Intake: Oral 980 300 Other 240 Output: Urine/Stool Mix 1 Other: # Voids 4 1 # Bowel Movements 0 0 Active Medications: Current Medications Acetaminophen (Tylenol) 650 mg PO Q4H PRN PRN Reason: Pain (Mild 1-3) Stop: 09/16/19 18:21 Last Admin: 07/23/19 15:30 Dose: 650 mg Al Hydrox/Mg Hydrox/Simethicone (Maalox) 30 ml PO Q4HR PRN PRN Reason: GI DISTRESS Stop: 09/16/19 22:35 Albuterol Sulfate (Albuterol 2.5mg/3ml Neb Ud) 2.5 mg HHN QIDRT PRN PRN Reason: Shortness of Breath or Wheeze Stop: 09/16/19 18:59 Benazepril HCl (Lotensin) 10 mg PO BID [facility] Stop: 09/17/19 08:59 Last Admin: 07/29/19 09:00 Dose: 10 mg [place] Oil/Wallisian Balsam/Trypsin (Venelex) 1 appl TP DAILY [facility] Stop: 09/25/19 12:29 Last Admin: 07/29/19 09:02 Dose: 1 appl Cephalexin Monohydrate (Keflex) 500 mg PO TID [facility] Stop: 09/23/19 16:59 Last Admin: 07/29/19 08:59 Dose: 500 mg Dextrose (Glutose 40%) 18.75 gm PO PRN PRN PRN Reason: BS Below 70 if tolerate po Stop: 09/16/19 18:22 Glucagon (Glucagen) 1 mg IM PRN PRN PRN Reason: BS Below 70 if not tolerate po Stop: 09/16/19 18:22 Insulin Human Lispro (Humalog Insulin Sliding Scale) 0 units SUBQ ACHS [facility]; Protocol Stop: 09/16/19 20:59 Last Admin: 07/29/19 11:18 Dose: Not Given Lorazepam (Ativan) 0.5 mg PO Q4HR PRN; Protocol PRN Reason: Anxiety Stop: 08/17/19 22:35 Last Admin: 07/28/19 19:28 Dose: 0.5 mg Magnesium Hydroxide (Milk Of Magnesia) 30 ml PO HS PRN PRN Reason: Constipation Metformin HCl (Glucophage) 500 mg PO BIDWM [facility] Stop: 09/17/19 08:59 Last Admin: 07/29/19 07:57 Dose: 500 mg Multivitamins/Vitamin C (Theragran) 1 tab PO DAILY [facility] Stop: 09/17/19 08:59 Last Admin: 07/29/19 09:00 Dose: 1 tab Neomycin/Polymyxin/Bacitracin (Triple Antibiotic Pkt) 1 pkt TP BID [facility] Stop: 09/20/19 08:59 Last Admin: 07/29/19 08:59 Dose: 1 pkt Polyethylene Glycol (Miralax) 17 gm PO DAILY [facility] Stop: 09/24/19 13:25 Last Admin: 07/29/19 09:07 Dose: 17 gm Pregabalin (Lyrica) 100 mg PO BID [facility] Stop: 09/17/19 08:59 Last Admin: 07/29/19 09:00 Dose: 100 mg Quetiapine Fumarate (Seroquel) 25 mg PO HS [facility]; Protocol Stop: 09/23/19 20:59 Last Admin: 07/28/19 20:34 Dose: 25 mg Simvastatin (Zocor) 20 mg PO HS [facility]; Protocol Stop: 09/16/19 20:59 Last Admin: 07/28/19 20:34 Dose: 20 mg Sitagliptin Phosphate (Januvia) 50 mg PO BID [facility] Stop: 09/17/19 08:59 Last Admin: 07/29/19 09:00 Dose: 50 mg Tamsulosin HCl (Flomax) 0.4 mg PO DAILY [facility] Stop: 09/19/19 12:26 Last Admin: 07/29/19 09:00 Dose: 0.4 mg Zolpidem Tartrate (Ambien) 10 mg PO HS PRN PRN Reason: Insomnia Stop: 09/16/19 23:00 Last Admin: 07/26/19 21:23 Dose: 10 mg General: thin HEENT: NC/AT, PERRLA, EOMI Neck: Supple, No JVD, No thyromegaly, No LAD Lungs: CTAB Cardiovascular: RRR, Normal S1, Normal S2, with murmur Abdomen: soft, non-tender, non-distended, positive bowel sound Extremities: clear Internal Medicine Assmt/Plan - Assessment Assessment: ASSESSMENT AND PLAN: Diabetes, hypertension, hypercholesterolemia, peripheral neuropathy. bph l 5th digit nonhealing wound - Plan Plan: PLAN: Continue the patient on ADA diet and insulin sliding scale. We will continue on his oral hypoglycemic medications. We will continue metformin and Januvia. Continue on angiotensin converting enzyme inhibitor as well as Lyrica for neuropathy and a statin for hyperlipidemia. will add flomax add keflex ble arterial us-p add miralax dw cm and rn Nutritional Asmnt/Malnutr-PDOC - Dietary Evaluation Malnutrition Findings (Please click <Entered> for more info): Nutritional Asmnt/Malnutrition Start: 07/21/19 14: 03 Text: Status: Complete Freq: Protocol: Document 07/21/19 14:03 JASBIR (Rec: 07/21/19 14:10 [email or web address] [email or web address]) Nutritional Asmnt/Malnutrition Patient General Information Nutritional Screening Moderate Risk Low Risk Diagnosis Psychosis Pertinent Medical Hx/Surgical Hx HTN, DM, Hypercholesterolemia, Alzheimers Subjective Information Pt is a 83-year-old male admitted on 07/17 d/t aggressive combative behaviors , paranoias. Pt is eating an estimated 70% of meals per TUB OPERATOR account. Dietary is currently providing an estimated 2500 kcals and 128 gm Pro, per Pt PO intake this is providing an estimated 1750 kcals and 90gm Pro to meet 100% kcal and 100 +% Pro needs. Pt receives Glucerna TID with snacks per pt request. 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 Pt stated he does not need a liquid diet, he does enjoy soups but can chew just fine. Pt does require assistance when eating. Pt. is adequately meeting estimated nutritional needs, has not had any Glucerna. Discounting Glucerna TID, will continue to monitor PO intake. Anthropometrics HT: 57 WT: 140 LB (63.63 kg) BMI: 21.92 (Normal) GI/ Skin Integrity GI: WNL, Soft, Non-tender, flat BM: 07/19 x1 I/O: 1440/Not Noted Skin: Wound on nose bridge, left fifth toe wound Brody: 17 Diet Order: CCHO, Chopped Estimated Energy Needs: ( Geriatric, CBW) 2632-3254 kcals (25-30 kcals/ kg) 65-80g Pro (1.0-1.2 g/kg) 0961-1138 ml (25-30 ml/kg) Current Diet Order/ Nutrition Support CCHO, Chopped Patient / S.O Can Pertinent Medications Maalox (PRN), Albuterol (PRN), Glutose 40% (PRN), Glucagen ( PRN), INS-SS, MOM (PRN), Glucophage, Theragran, Januvia , Flomax Pertinent Labs POC Glucose (last 24 hrs): 106 , 171, 108, 96, 179 07/17 Na 130, Glucose 135, T Pro 6.1, Alb 3.3, A1C 5.8% Nutritional Hx/Data Height 1.7 m Height (Calculated Centimeters) 170.2 Current Weight (lbs) 63.503 kg Weight (Calculated Kilograms) 63.5 Weight (Calculated Grams) 26301.9 [place] Body Weight 148 lbs (67.27kg) Body Mass Index (BMI) 21.9 Weight Status Approriate GI Symptoms GI Symptoms None Last BM 07/19 x1 Usual diet at home lots of broths Skin Integrity/Comment: Skin: Wound on nose bridge, left fifth toe wound Brody: 17 Current %PO Fair (50-74%) Estimated Nutritional Goals BEE in Kcals: Using Current wt Calories/Kcals/Kg 25-30 Kcals Calculated 9383-8922 Protein: Using Current wt Protein g/k.0-1.2 Protein Calculated 65-80 Fluid: ml 8680-9640 ml (25-30 ml/kg) Nutritional Problem 1. Problem Problem Impaired nutrient utilization Etiology r/t endocrine dysfunction Signs/Symptoms: aeb labs 07/17 Glucose 135, 07/20 POC Glucose 106, 171, 108, 96 , 179 and A1C 5.8%. Malnutrition Related to Morbid Obesity Malnutrition related to morbid obesity No Intervention/Recommendation Comments 1.Continue CCHO, chopped diet as tolerated. 2.Continue antihyperglycemic medication for glucose control per MD order. Expected Outcomes/Goals Expected Outcomes/Goals 1.PO intake to meet 75% of estimated nutritional needs. 2.Monitor PO intake, wt, nutrition related labs, and skin integrity to trend WNL. 3.F/U as low risk in 7-10 days , 07/27-07/30.
--- NOTE | 2019-07-29 21:18 | Psych Progress Note ---
Psych Progress Note - Intro Date of Progress Note: 07/29/19 - Assessment Assessment: Patient interviewed, case discussed with staff, chart and records reviewed. The patient is confused and disorganized. The patient was attempting to communicate something to this provider but he was not making any sense. He was laughing inappropriately during the interview. He otherwise needs staff redirection and assistance. No evidence of suicidal homicidal thoughts. The patient is tolerating his medications well no side effects noted. - Vitals, I&O Vitals: Vital Signs - 24 hr 07/29/19 07/29/19 07/29/19 06:37 09:00 14:00 Temp 97.1 F 96.8 F HR 92 92 108 RR 19 68 BP 132/81 132/81 96/58 O2 Sat % 94 95 07/29/19 07/29/19 17:21 20:01 Temp 97.4 F HR 108 101 RR 19 BP 96/45 103/57 O2 Sat % 97 - Objective Psych General Appearance: Report: No acute distress Psych Behavior: Report: Alert, Calm Psych Speech: Report: Mumbled Psych Mood: Report: Anxious Psych Affect: Report: Labile Psych Cognition: Report: Confused Psych Insight: Report: Impaired Psych Judgement: Report: Impaired - Plan Plan: Continue current treatment plan, continue medications, continue to monitor behaviors. - Review of Relevant Data Review of Relevant Data: I have reviewed the following items and time michelle (where applicable) has been applied. Psych Data Reviewed: Vitals - Medications Current Medications: Current Medications Acetaminophen (Tylenol) 650 mg PO Q4H PRN PRN Reason: Pain (Mild 1-3) Stop: 09/16/19 18:21 Last Admin: 07/23/19 15:30 Dose: 650 mg Al Hydrox/Mg Hydrox/Simethicone (Maalox) 30 ml PO Q4HR PRN PRN Reason: GI DISTRESS Stop: 09/16/19 22:35 Albuterol Sulfate (Albuterol 2.5mg/3ml Neb Ud) 2.5 mg HHN QIDRT PRN PRN Reason: Shortness of Breath or Wheeze Stop: 09/16/19 18:59 Benazepril HCl (Lotensin) 10 mg PO BID [facility] Stop: 09/17/19 08:59 Last Admin: 07/29/19 17:21 Dose: Not Given [place] Oil/[place]raini Balsam/Trypsin (Venelex) 1 appl TP DAILY [facility] Stop: 09/25/19 12:29 Last Admin: 07/29/19 09:02 Dose: 1 appl Cephalexin Monohydrate (Keflex) 500 mg PO TID [facility] Stop: 09/23/19 16:59 Last Admin: 07/29/19 20:47 Dose: 500 mg Dextrose (Glutose 40%) 18.75 gm PO PRN PRN PRN Reason: BS Below 70 if tolerate po Stop: 09/16/19 18:22 Glucagon (Glucagen) 1 mg IM PRN PRN PRN Reason: BS Below 70 if not tolerate po Stop: 09/16/19 18:22 Insulin Human Lispro (Humalog Insulin Sliding Scale) 0 units SUBQ [facility]; Protocol Stop: 09/16/19 20:59 Last Admin: 07/29/19 20:47 Dose: Not Given Lorazepam (Ativan) 0.5 mg PO Q4HR PRN; Protocol PRN Reason: Anxiety Stop: 08/17/19 22:35 Last Admin: 07/29/19 20:48 Dose: 0.5 mg Magnesium Hydroxide (Milk Of Magnesia) 30 ml PO HS PRN PRN Reason: Constipation Metformin HCl (Glucophage) 500 mg PO BIDWM [facility] Stop: 09/17/19 08:59 Last Admin: 07/29/19 17:20 Dose: 500 mg Multivitamins/Vitamin C (Theragran) 1 tab PO DAILY [facility] Stop: 09/17/19 08:59 Last Admin: 07/29/19 09:00 Dose: 1 tab Neomycin/Polymyxin/Bacitracin (Triple Antibiotic Pkt) 1 pkt TP BID [facility] Stop: 09/20/19 08:59 Last Admin: 07/29/19 17:20 Dose: 1 pkt Polyethylene Glycol (Miralax) 17 gm PO DAILY [facility] Stop: 09/24/19 13:25 Last Admin: 07/29/19 09:07 Dose: 17 gm Pregabalin (Lyrica) 100 mg PO BID [facility] Stop: 09/17/19 08:59 Last Admin: 07/29/19 17:20 Dose: 100 mg Quetiapine Fumarate (Seroquel) 25 mg PO HS [facility]; Protocol Stop: 09/23/19 20:59 Last Admin: 07/29/19 20:48 Dose: 25 mg Simvastatin (Zocor) 20 mg PO HS [facility]; Protocol Stop: 09/16/19 20:59 Last Admin: 07/29/19 20:48 Dose: 20 mg Sitagliptin Phosphate (Januvia) 50 mg PO BID [facility] Stop: 09/17/19 08:59 Last Admin: 07/29/19 17:20 Dose: 50 mg Tamsulosin HCl (Flomax) 0.4 mg PO DAILY [facility] Stop: 09/19/19 12:26 Last Admin: 07/29/19 09:00 Dose: 0.4 mg Zolpidem Tartrate (Ambien) 10 mg PO HS PRN PRN Reason: Insomnia Stop: 09/16/19 23:00 Last Admin: 07/26/19 21:23 Dose: 10 mg
[2019-07-30] MEDS: INSULIN LISPRO SLIDING SCALE 100 UNITS/ML UNIT SUBQ SCH ×4 (06:51→21:31)
[2019-07-30] MEDS: Venelex 60gm Tube TP SCH (08:35)
[2019-07-30] MEDS: Triple Antibiotic 0.94 gm Pkt TP SCH ×2 (08:36→16:43)
[2019-07-30] MEDS: POLYETHYLENE GLYCOL 3350 17 GM PACK PO SCH (08:36)
[2019-07-30] MEDS: Multivitamin Tab PO SCH (08:38)
--- NOTE | 2019-07-30 19:13 | Psych Progress Note ---
Psych Progress Note - Intro Date of Progress Note: 07/30/19 - Assessment Assessment: Patient interviewed, case discussed with staff, chart and records reviewed. The patient is confused and disorganized. Speech is nonsensical. He otherwise needs staff redirection and assistance. No evidence of suicidal homicidal thoughts. The patient is tolerating his medications well no side effects noted. - Vitals, I&O Vitals: Vital Signs - 24 hr 07/29/19 07/29/19 07/30/19 20:00 20:01 06:19 Temp 97.4 F 97.1 F HR 101 96 RR 20 19 20 BP 103/57 111/50 O2 Sat % 97 98 07/30/19 07/30/19 07/30/19 07:27 08:37 14:00 Temp 97.8 F HR 103 RR 20 20 BP 111/50 94/60 O2 Sat % 96 07/30/19 16:44 Temp HR 103 RR BP 94/60 O2 Sat % - Objective Psych General Appearance: Report: No acute distress Psych Behavior: Report: Alert, Calm Psych Speech: Report: Mumbled Psych Mood: Report: Anxious Psych Affect: Report: Labile Psych Cognition: Report: Confused Psych Insight: Report: Impaired Psych Judgement: Report: Impaired - Plan Plan: Continue current treatment plan, continue medications, continue to monitor behaviors. - Review of Relevant Data Review of Relevant Data: I have reviewed the following items and time michelle (where applicable) has been applied. - Medications Current Medications: Current Medications Acetaminophen (Tylenol) 650 mg PO Q4H PRN PRN Reason: Pain (Mild 1-3) Stop: 09/16/19 18:21 Last Admin: 07/23/19 15:30 Dose: 650 mg Al Hydrox/Mg Hydrox/Simethicone (Maalox) 30 ml PO Q4HR PRN PRN Reason: GI DISTRESS Stop: 09/16/19 22:35 Albuterol Sulfate (Albuterol 2.5mg/3ml Neb Ud) 2.5 mg HHN QIDRT PRN PRN Reason: Shortness of Breath or Wheeze Stop: 09/16/19 18:59 Benazepril HCl (Lotensin) 10 mg PO BID [facility] Stop: 09/17/19 08:59 Last Admin: 07/30/19 16:44 Dose: Not Given [place] Oil/[place]i Balsam/Trypsin (Venelex) 1 appl TP DAILY [facility] Stop: 09/25/19 12:29 Last Admin: 07/30/19 08:35 Dose: 1 appl Cephalexin Monohydrate (Keflex) 500 mg PO TID [facility] Stop: 09/23/19 16:59 Last Admin: 07/30/19 14:23 Dose: 500 mg Dextrose (Glutose 40%) 18.75 gm PO PRN PRN PRN Reason: BS Below 70 if tolerate po Stop: 09/16/19 18:22 Glucagon (Glucagen) 1 mg IM PRN PRN PRN Reason: BS Below 70 if not tolerate po Stop: 09/16/19 18:22 Insulin Human Lispro (Humalog Insulin Sliding Scale) 0 units SUBQ ACHS [facility]; Protocol Stop: 09/16/19 20:59 Last Admin: 07/30/19 16:40 Dose: Not Given Lorazepam (Ativan) 0.5 mg PO Q4HR PRN; Protocol PRN Reason: Anxiety Stop: 08/17/19 22:35 Last Admin: 07/29/19 20:48 Dose: 0.5 mg Magnesium Hydroxide (Milk Of Magnesia) 30 ml PO HS PRN PRN Reason: Constipation Metformin HCl (Glucophage) 500 mg PO BIDWM [facility] Stop: 09/17/19 08:59 Last Admin: 07/30/19 17:15 Dose: 500 mg Multivitamins/Vitamin C (Theragran) 1 tab PO DAILY [facility] Stop: 09/17/19 08:59 Last Admin: 07/30/19 08:38 Dose: 1 tab Neomycin/Polymyxin/Bacitracin (Triple Antibiotic Pkt) 1 pkt TP BID [facility] Stop: 09/20/19 08:59 Last Admin: 07/30/19 16:43 Dose: 1 pkt Polyethylene Glycol (Miralax) 17 gm PO DAILY [facility] Stop: 09/24/19 13:25 Last Admin: 07/30/19 08:36 Dose: 17 gm Pregabalin (Lyrica) 100 mg PO BID [facility] Stop: 09/17/19 08:59 Last Admin: 07/30/19 16:43 Dose: 100 mg Quetiapine Fumarate (Seroquel) 25 mg PO HS [facility]; Protocol Stop: 09/23/19 20:59 Last Admin: 07/29/19 20:48 Dose: 25 mg Simvastatin (Zocor) 20 mg PO HS [facility]; Protocol Stop: 09/16/19 20:59 Last Admin: 07/29/19 20:48 Dose: 20 mg Sitagliptin Phosphate (Januvia) 50 mg PO BID [facility] Stop: 09/17/19 08:59 Last Admin: 07/30/19 16:43 Dose: 50 mg Tamsulosin HCl (Flomax) 0.4 mg PO DAILY [facility] Stop: 09/19/19 12:26 Last Admin: 07/30/19 08:38 Dose: 0.4 mg Zolpidem Tartrate (Ambien) 10 mg PO HS PRN PRN Reason: Insomnia Stop: 09/16/19 23:00 Last Admin: 07/26/19 21:23 Dose: 10 mg
--- NOTE | 2019-07-30 21:12 | Internal Medicine Prog Note ---
Internal Medicine Subjective - Subjective Patient seen and examined:: with staff, chart reviewed Patient is:: awake, verbal, interactive, jaret chair, confused Per staff patient has:: no adverse event, no episodes of fall, poor appetite, poor oral intake, noncompliant, refusing care Internal Medicine Objective - Results Recent Labs: Laboratory Last Values POC Glucose 125 MG/DL (70 - 105) H 07/30/19 17:28 - Physical Exam Vitals and I&O: Vital Signs Temp 99.8 F 07/30/19 20:07 Pulse 104 07/30/19 20:07 Resp 19 07/30/19 20:07 BP 102/60 07/30/19 20:07 Pulse Ox 97 07/30/19 20:07 Intake & Output 07/30/19 07/30/19 07/31/19 06:59 18:59 06:59 Intake Total 360 570 240 Output Total 1 1 Balance 359 570 239 Intake: Oral 360 570 240 Output: Urine/Stool Mix 1 1 Other: # Voids 2 1 # Bowel Movements 0 1 Active Medications: Current Medications Acetaminophen (Tylenol) 650 mg PO Q4H PRN PRN Reason: Pain (Mild 1-3) Stop: 09/16/19 18:21 Last Admin: 07/23/19 15:30 Dose: 650 mg Al Hydrox/Mg Hydrox/Simethicone (Maalox) 30 ml PO Q4HR PRN PRN Reason: GI DISTRESS Stop: 09/16/19 22:35 Albuterol Sulfate (Albuterol 2.5mg/3ml Neb Ud) 2.5 mg HHN QIDRT PRN PRN Reason: Shortness of Breath or Wheeze Stop: 09/16/19 18:59 Benazepril HCl (Lotensin) 10 mg PO BID [facility] Stop: 09/17/19 08:59 Last Admin: 07/30/19 16:44 Dose: Not Given [place] Oil/[place]ian Balsam/Trypsin (Venelex) 1 appl TP DAILY [facility] Stop: 09/25/19 12:29 Last Admin: 07/30/19 08:35 Dose: 1 appl Cephalexin Monohydrate (Keflex) 500 mg PO TID [facility] Stop: 09/23/19 16:59 Last Admin: 07/30/19 14:23 Dose: 500 mg Dextrose (Glutose 40%) 18.75 gm PO PRN PRN PRN Reason: BS Below 70 if tolerate po Stop: 09/16/19 18:22 Glucagon (Glucagen) 1 mg IM PRN PRN PRN Reason: BS Below 70 if not tolerate po Stop: 09/16/19 18:22 Insulin Human Lispro (Humalog Insulin Sliding Scale) 0 units SUBQ ACHS [facility]; Protocol Stop: 09/16/19 20:59 Last Admin: 07/30/19 16:40 Dose: Not Given Lorazepam (Ativan) 0.5 mg PO Q4HR PRN; Protocol PRN Reason: Anxiety Stop: 08/17/19 22:35 Last Admin: 07/29/19 20:48 Dose: 0.5 mg Magnesium Hydroxide (Milk Of Magnesia) 30 ml PO HS PRN PRN Reason: Constipation Metformin HCl (Glucophage) 500 mg PO BIDWM [facility] Stop: 09/17/19 08:59 Last Admin: 07/30/19 17:15 Dose: 500 mg Multivitamins/Vitamin C (Theragran) 1 tab PO DAILY [facility] Stop: 09/17/19 08:59 Last Admin: 07/30/19 08:38 Dose: 1 tab Neomycin/Polymyxin/Bacitracin (Triple Antibiotic Pkt) 1 pkt TP BID [facility] Stop: 09/20/19 08:59 Last Admin: 07/30/19 16:43 Dose: 1 pkt Polyethylene Glycol (Miralax) 17 gm PO DAILY [facility] Stop: 09/24/19 13:25 Last Admin: 07/30/19 08:36 Dose: 17 gm Pregabalin (Lyrica) 100 mg PO BID [facility] Stop: 09/17/19 08:59 Last Admin: 07/30/19 16:43 Dose: 100 mg Quetiapine Fumarate (Seroquel) 25 mg PO HS [facility]; Protocol Stop: 09/23/19 20:59 Last Admin: 07/29/19 20:48 Dose: 25 mg Simvastatin (Zocor) 20 mg PO HS [facility]; Protocol Stop: 09/16/19 20:59 Last Admin: 07/29/19 20:48 Dose: 20 mg Sitagliptin Phosphate (Januvia) 50 mg PO BID [facility] Stop: 09/17/19 08:59 Last Admin: 07/30/19 16:43 Dose: 50 mg Tamsulosin HCl (Flomax) 0.4 mg PO DAILY [facility] Stop: 09/19/19 12:26 Last Admin: 07/30/19 08:38 Dose: 0.4 mg Zolpidem Tartrate (Ambien) 10 mg PO HS PRN PRN Reason: Insomnia Stop: 09/16/19 23:00 Last Admin: 07/26/19 21:23 Dose: 10 mg General: thin HEENT: NC/AT, PERRLA, EOMI Neck: Supple, No JVD, No thyromegaly, No LAD Lungs: CTAB Cardiovascular: RRR, Normal S1, Normal S2, with murmur Abdomen: soft, non-tender, non-distended, positive bowel sound Extremities: clear Internal Medicine Assmt/Plan - Assessment Assessment: ASSESSMENT AND PLAN: Diabetes, hypertension, hypercholesterolemia, peripheral neuropathy. bph l 5th digit nonhealing wound - Plan Plan: PLAN: Continue the patient on ADA diet and insulin sliding scale. We will continue on his oral hypoglycemic medications. We will continue metformin and Januvia. Continue on angiotensin converting enzyme inhibitor as well as Lyrica for neuropathy and a statin for hyperlipidemia. will add flomax add keflex ble arterial us-p add miralax dw cm and rn Nutritional Asmnt/Malnutr-PDOC - Dietary Evaluation Malnutrition Findings (Please click <Entered> for more info): Nutritional Asmnt/Malnutrition Start: 07/21/19 14: 03 Text: Status: Complete Freq: Protocol: Document 07/21/19 14:03 JASBIR (Rec: 07/21/19 14:10 [email or web address] [email or web address]) Nutritional Asmnt/Malnutrition Patient General Information Nutritional Screening Moderate Risk Low Risk Diagnosis Psychosis Pertinent Medical Hx/Surgical Hx HTN, DM, Hypercholesterolemia, Alzheimers Subjective Information Pt is a 83-year-old male admitted on 07/17 d/t aggressive combative behaviors , paranoias. 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 Dietary is currently providing an estimated 2500 kcals and 128 gm Pro, per Pt PO intake this is providing an estimated 1750 kcals and 90gm Pro to meet 100% kcal and 100 +% Pro needs. Pt receives Glucerna TID with snacks per pt request. 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 Pt stated he does not need a liquid diet, he does enjoy soups but can chew just fine. Pt does require assistance when eating. Pt. is adequately meeting estimated nutritional needs, has not had any Glucerna. Discounting Glucerna TID, will continue to monitor PO intake. Anthropometrics HT: 57 WT: 140 LB (63.63 kg) BMI: 21.92 (Normal) GI/ Skin Integrity GI: WNL, Soft, Non-tender, flat BM: 07/19 x1 I/O: 1440/Not Noted Skin: Wound on nose bridge, left fifth toe wound Brody: 17 Diet Order: CCHO, Chopped Estimated Energy Needs: ( Geriatric, CBW) 5199-6805 kcals (25-30 kcals/ kg) 65-80g Pro (1.0-1.2 g/kg) 1918-8622 ml (25-30 ml/kg) Current Diet Order/ Nutrition Support CCHO, Chopped Patient / S.O Can Pertinent Medications Maalox (PRN), Albuterol (PRN), Glutose 40% (PRN), Glucagen ( PRN), INS-SS, MOM (PRN), Glucophage, Theragran, Januvia , Flomax Pertinent Labs POC Glucose (last 24 hrs): 106 , 171, 108, 96, 179 07/17 Na 130, Glucose 135, T Pro 6.1, Alb 3.3, A1C 5.8% Nutritional Hx/Data Height 1.7 m Height (Calculated Centimeters) 170.2 Current Weight (lbs) 63.503 kg Weight (Calculated Kilograms) 63.5 Weight (Calculated Grams) 59395.9 [place] Body Weight 148 lbs (67.27kg) Body Mass Index (BMI) 21.9 Weight Status Approriate GI Symptoms GI Symptoms None Last BM 07/19 x1 Usual diet at home lots of broths Skin Integrity/Comment: Skin: Wound on nose bridge, left fifth toe wound Brody: 17 Current %PO Fair (50-74%) Estimated Nutritional Goals BEE in Kcals: Using Current wt Calories/Kcals/Kg 25-30 Kcals Calculated 3876-5205 Protein: Using Current wt Protein g/k.0-1.2 Protein Calculated 65-80 Fluid: ml 2489-0591 ml (25-30 ml/kg) Nutritional Problem 1. Problem Problem Impaired nutrient utilization Etiology r/t endocrine dysfunction Signs/Symptoms: aeb labs 07/17 Glucose 135, 07/20 POC Glucose 106, 171, 108, 96 , 179 and A1C 5.8%. Malnutrition Related to Morbid Obesity Malnutrition related to morbid obesity No Intervention/Recommendation Comments 1.Continue CCHO, chopped diet as tolerated. 2.Continue antihyperglycemic medication for glucose control per MD order. Expected Outcomes/Goals Expected Outcomes/Goals 1.PO intake to meet 75% of estimated nutritional needs. 2.Monitor PO intake, wt, nutrition related labs, and skin integrity to trend WNL. 3.F/U as low risk in 7-10 days , 07/27-07/30.
[2019-07-31] MEDS: INSULIN LISPRO SLIDING SCALE 100 UNITS/ML UNIT SUBQ SCH ×4 (06:37→21:02)
[2019-07-31] MEDS: POLYETHYLENE GLYCOL 3350 17 GM PACK PO SCH (08:49)
[2019-07-31] MEDS: Triple Antibiotic 0.94 gm Pkt TP SCH ×2 (08:49→16:34)
[2019-07-31] MEDS: Multivitamin Tab PO SCH (08:49)
[2019-07-31] MEDS: Venelex 60gm Tube TP SCH (08:50)
--- NOTE | 2019-07-31 12:55 | Internal Medicine Prog Note ---
Internal Medicine Subjective - Subjective Patient seen and examined:: with staff, chart reviewed Patient is:: awake, verbal, interactive, jaret chair, confused Per staff patient has:: no adverse event, no episodes of fall, poor appetite, poor oral intake, noncompliant, refusing care Internal Medicine Objective - Results Recent Labs: Laboratory Last Values POC Glucose 125 MG/DL (70 - 105) H 07/31/19 05:40 - Physical Exam Vitals and I&O: Vital Signs Temp 97.1 F 07/31/19 06:08 Pulse 96 07/31/19 08:49 Resp 20 07/31/19 08:00 BP 122/67 07/31/19 08:49 Pulse Ox 94 07/31/19 06:08 Intake & Output 07/30/19 07/31/19 07/31/19 18:59 06:59 18:59 Intake Total 570 300 Output Total 1 Balance 570 299 Intake: Oral 570 300 Output: Urine/Stool Mix 1 Other: # Voids 1 # Bowel Movements 1 0 Active Medications: Current Medications Acetaminophen (Tylenol) 650 mg PO Q4H PRN PRN Reason: Pain (Mild 1-3) Stop: 09/16/19 18:21 Last Admin: 07/23/19 15:30 Dose: 650 mg Al Hydrox/Mg Hydrox/Simethicone (Maalox) 30 ml PO Q4HR PRN PRN Reason: GI DISTRESS Stop: 09/16/19 22:35 Albuterol Sulfate (Albuterol 2.5mg/3ml Neb Ud) 2.5 mg HHN QIDRT PRN PRN Reason: Shortness of Breath or Wheeze Stop: 09/16/19 18:59 Benazepril HCl (Lotensin) 10 mg PO BID [facility] Stop: 09/17/19 08:59 Last Admin: 07/31/19 08:49 Dose: 10 mg [place] Oil/[place] Balsam/Trypsin (Venelex) 1 appl TP DAILY [facility] Stop: 09/25/19 12:29 Last Admin: 07/31/19 08:50 Dose: 1 appl Cephalexin Monohydrate (Keflex) 500 mg PO TID [facility] Stop: 09/23/19 16:59 Last Admin: 07/31/19 11:35 Dose: 500 mg Dextrose (Glutose 40%) 18.75 gm PO PRN PRN PRN Reason: BS Below 70 if tolerate po Stop: 09/16/19 18:22 Glucagon (Glucagen) 1 mg IM PRN PRN PRN Reason: BS Below 70 if not tolerate po Stop: 09/16/19 18:22 Insulin Human Lispro (Humalog Insulin Sliding Scale) 0 units SUBQ ACHS [facility]; Protocol Stop: 09/16/19 20:59 Last Admin: 07/31/19 11:35 Dose: Not Given Lorazepam (Ativan) 0.5 mg PO Q4HR PRN; Protocol PRN Reason: Anxiety Stop: 08/17/19 22:35 Last Admin: 07/30/19 22:28 Dose: 0.5 mg Magnesium Hydroxide (Milk Of Magnesia) 30 ml PO HS PRN PRN Reason: Constipation Metformin HCl (Glucophage) 500 mg PO BIDWM [facility] Stop: 09/17/19 08:59 Last Admin: 07/31/19 08:00 Dose: 500 mg Multivitamins/Vitamin C (Theragran) 1 tab PO DAILY [facility] Stop: 09/17/19 08:59 Last Admin: 07/31/19 08:49 Dose: 1 tab Neomycin/Polymyxin/Bacitracin (Triple Antibiotic Pkt) 1 pkt TP BID [facility] Stop: 09/20/19 08:59 Last Admin: 07/31/19 08:49 Dose: 1 pkt Polyethylene Glycol (Miralax) 17 gm PO DAILY [facility] Stop: 09/24/19 13:25 Last Admin: 07/31/19 08:49 Dose: 17 gm Pregabalin (Lyrica) 100 mg PO BID [facility] Stop: 09/17/19 08:59 Last Admin: 07/31/19 08:48 Dose: 100 mg Quetiapine Fumarate (Seroquel) 25 mg PO HS [facility]; Protocol Stop: 09/23/19 20:59 Last Admin: 07/30/19 21:32 Dose: 25 mg Simvastatin (Zocor) 20 mg PO HS [facility]; Protocol Stop: 09/16/19 20:59 Last Admin: 07/30/19 21:32 Dose: 20 mg Sitagliptin Phosphate (Januvia) 50 mg PO BID [facility] Stop: 09/17/19 08:59 Last Admin: 07/31/19 08:49 Dose: 50 mg Tamsulosin HCl (Flomax) 0.4 mg PO DAILY [facility] Stop: 09/19/19 12:26 Last Admin: 07/31/19 08:49 Dose: 0.4 mg Zolpidem Tartrate (Ambien) 10 mg PO HS PRN PRN Reason: Insomnia Stop: 09/16/19 23:00 Last Admin: 07/26/19 21:23 Dose: 10 mg General: thin HEENT: NC/AT, PERRLA, EOMI Neck: Supple, No JVD, No thyromegaly, No LAD Lungs: CTAB Cardiovascular: RRR, Normal S1, Normal S2, with murmur Abdomen: soft, non-tender, non-distended, positive bowel sound Extremities: clear Internal Medicine Assmt/Plan - Assessment Assessment: ASSESSMENT AND PLAN: Diabetes, hypertension, hypercholesterolemia, peripheral neuropathy. bph l 5th digit nonhealing wound PAD - Plan Plan: PLAN: Continue the patient on ADA diet and insulin sliding scale. We will continue on his oral hypoglycemic medications. We will continue metformin and Januvia. Continue on angiotensin converting enzyme inhibitor as well as Lyrica for neuropathy and a statin for hyperlipidemia. will add flomax add keflex ble arterial us-p add miralax dw cm and rn will add plavix Nutritional Asmnt/Malnutr-PDOC - Dietary Evaluation Malnutrition Findings (Please click <Entered> for more info): Nutritional Asmnt/Malnutrition Start: 07/21/19 14: 03 Text: Status: Complete Freq: Protocol: Document 07/21/19 14:03 JASBIR (Rec: 07/21/19 14:10 [email or web address]) Nutritional Asmnt/Malnutrition Patient General Information Nutritional Screening Moderate Risk Low Risk Diagnosis Psychosis Pertinent Medical Hx/Surgical Hx HTN, DM, Hypercholesterolemia, Alzheimers Subjective Information Pt is a 83-year-old male admitted on 07/17 d/t aggressive combative behaviors , paranoias. Pt is eating an estimated 70% of meals per PROP ATTENDANT account. Dietary is currently providing an estimated 2500 kcals and 128 gm Pro, per Pt PO intake this is providing an estimated 1750 kcals and 90gm Pro to meet 100% kcal and 100 +% Pro needs. Pt receives Glucerna TID with snacks per pt request. Spoke with pt yesterday as rn social work was told by pts that he eats a liquid diet at home and was having trouble chewing. Pt stated he does not need a liquid diet, he does enjoy soups but can chew just fine. Pt does require assistance when eating. Pt. is adequately meeting estimated nutritional needs, has not had any Glucerna. Discounting Glucerna TID, will continue to monitor PO intake. Anthropometrics HT: 57 WT: 140 LB (63.63 kg) BMI: 21.92 (Normal) GI/ Skin Integrity GI: WNL, Soft, Non-tender, flat BM: 07/19 x1 I/O: 1440/Not Noted Skin: Wound on nose bridge, left fifth toe wound Brody: 17 Diet Order: CCHO, Chopped Estimated Energy Needs: ( Geriatric, CBW) 9868-3255 kcals (25-30 kcals/ kg) 65-80g Pro (1.0-1.2 g/kg) 1599-9737 ml (25-30 ml/kg) Current Diet Order/ Nutrition Support CCHO, Chopped Patient / S.O Can Pertinent Medications Maalox (PRN), Albuterol (PRN), Glutose 40% (PRN), Glucagen ( PRN), INS-SS, MOM (PRN), Glucophage, Theragran, Januvia , Flomax Pertinent Labs POC Glucose (last 24 hrs): 106 , 171, 108, 96, 179 07/17 Na 130, Glucose 135, T Pro 6.1, Alb 3.3, A1C 5.8% Nutritional Hx/Data Height 1.7 m Height (Calculated Centimeters) 170.2 Current Weight (lbs) 63.503 kg Weight (Calculated Kilograms) 63.5 Weight (Calculated Grams) 73476.9 [place] Body Weight 148 lbs (67.27kg) Body Mass Index (BMI) 21.9 Weight Status Approriate GI Symptoms GI Symptoms None Last BM 07/19 x1 Usual diet at home lots of broths Skin Integrity/Comment: Skin: Wound on nose bridge, left fifth toe wound Brody: 17 Current %PO Fair (50-74%) Estimated Nutritional Goals BEE in Kcals: Using Current wt Calories/Kcals/Kg 25-30 Kcals Calculated 1895-3486 Protein: Using Current wt Protein g/k.0-1.2 Protein Calculated 65-80 Fluid: ml 1938-4715 ml (25-30 ml/kg) Nutritional Problem 1. Problem Problem Impaired nutrient utilization Etiology r/t endocrine dysfunction Signs/Symptoms: aeb labs 07/17 Glucose 135, 07/20 POC Glucose 106, 171, 108, 96 , 179 and A1C 5.8%. Malnutrition Related to Morbid Obesity Malnutrition related to morbid obesity No Intervention/Recommendation Comments 1.Continue CCHO, chopped diet as tolerated. 2.Continue antihyperglycemic medication for glucose control per MD order. Expected Outcomes/Goals Expected Outcomes/Goals 1.PO intake to meet 75% of estimated nutritional needs. 2.Monitor PO intake, wt, nutrition related labs, and skin integrity to trend WNL. 3.F/U as low risk in 7-10 days , 07/27-07/30.
--- NOTE | 2019-07-31 21:10 | Progress Notes ---
DATE: 07/31/2019 Case was discussed with staff of the patient, reviewed records. The patient continues to be impulsive, confused, unpredictable, can't take care of himself. Continues to be paranoid, disorganized, appetite and sleep varies, and overwhelmed. He is compliant with the medication with no side effects. No side effects with the medication, no sedation, no nausea, or no extrapyramidal symptoms. We will continue outpatient group therapy, milieu therapy, and adjust medication as needed. JOB# [id number] MTDGarry
[2019-08-01] MEDS: INSULIN LISPRO SLIDING SCALE 100 UNITS/ML UNIT SUBQ SCH ×4 (06:38→20:45)
[2019-08-01] MEDS: POLYETHYLENE GLYCOL 3350 17 GM PACK PO SCH ×2 (08:30→08:35)
[2019-08-01] MEDS: Triple Antibiotic 0.94 gm Pkt TP SCH ×2 (08:35→16:55)
[2019-08-01] MEDS: Multivitamin Tab PO SCH (08:36)
[2019-08-01] MEDS: Venelex 60gm Tube TP SCH (08:38)
--- NOTE | 2019-08-01 11:17 | Progress Notes ---
DATE: 08/01/2019 SUBJECTIVE: The patient is an 83-year-old male, currently in the hospital, very confused, mostly withdrawn, keeps to self, likely approaching his baseline. Again, I tried to get information from him. He has been challenging, still disorganized, talking nonsensically. The patient seems to be improving, better sleep. Doing well with the Seroquel and his psychotic symptoms seem to be lessening, decreasing, dissipating. Discussed with staff. He slept about 7 hours last night. Medications were reviewed. Labs were reviewed. Vitals were reviewed. Blood pressure 104/57, pulse of 99. MENTAL STATUS EXAMINATION: Little change, confused, disoriented, calm. PLAN: We will continue inpatient monitoring. We are trying to find him a safe place to go. central services tech in touch with family, actively seeking a safe discharge. JOB# [id number]
--- NOTE | 2019-08-01 12:53 | Internal Medicine Prog Note ---
Internal Medicine Subjective - Subjective Patient seen and examined:: with staff, chart reviewed Patient is:: awake, verbal, interactive, jaret chair, confused Per staff patient has:: no adverse event, no episodes of fall, poor appetite, poor oral intake, noncompliant, refusing care Internal Medicine Objective - Results Recent Labs: Laboratory Last Values POC Glucose 102 MG/DL (70 - 105) 08/01/19 05:32 - Physical Exam Vitals and I&O: Vital Signs Temp 97.6 F 08/01/19 05:43 Pulse 94 08/01/19 08:36 Resp 20 08/01/19 07:24 BP 133/67 08/01/19 08:36 Pulse Ox 93 08/01/19 05:43 Intake & Output 07/31/19 08/01/19 08/01/19 18:59 06:59 18:59 Intake Total 800 360 Balance 800 360 Intake: Oral 800 360 Other: # Voids 3 3 # Bowel Movements 0 0 Active Medications: Current Medications Acetaminophen (Tylenol) 650 mg PO Q4H PRN PRN Reason: Pain (Mild 1-3) Stop: 09/16/19 18:21 Last Admin: 07/23/19 15:30 Dose: 650 mg Al Hydrox/Mg Hydrox/Simethicone (Maalox) 30 ml PO Q4HR PRN PRN Reason: GI DISTRESS Stop: 09/16/19 22:35 Albuterol Sulfate (Albuterol 2.5mg/3ml Neb Ud) 2.5 mg HHN QIDRT PRN PRN Reason: Shortness of Breath or Wheeze Stop: 09/16/19 18:59 Benazepril HCl (Lotensin) 10 mg PO BID [facility] Stop: 09/17/19 08:59 Last Admin: 08/01/19 08:36 Dose: 10 mg [place] Oil/[place] Balsam/Trypsin (Venelex) 1 appl TP DAILY [facility] Stop: 09/25/19 12:29 Last Admin: 08/01/19 08:38 Dose: 1 appl Cephalexin Monohydrate (Keflex) 500 mg PO TID [facility] Stop: 09/23/19 16:59 Last Admin: 08/01/19 08:35 Dose: 500 mg Clopidogrel Bisulfate (Plavix) 75 mg PO DAILY [facility] Stop: 09/30/19 08:59 Last Admin: 08/01/19 08:35 Dose: 75 mg Dextrose (Glutose 40%) 18.75 gm PO PRN PRN PRN Reason: BS Below 70 if tolerate po Stop: 09/16/19 18:22 Glucagon (Glucagen) 1 mg IM PRN PRN PRN Reason: BS Below 70 if not tolerate po Stop: 09/16/19 18:22 Insulin Human Lispro (Humalog Insulin Sliding Scale) 0 units SUBQ ACHS [facility]; Protocol Stop: 09/16/19 20:59 Last Admin: 08/01/19 11:21 Dose: Not Given Lorazepam (Ativan) 0.5 mg PO Q4HR PRN; Protocol PRN Reason: Anxiety Stop: 08/17/19 22:35 Last Admin: 07/31/19 21:03 Dose: 0.5 mg Magnesium Hydroxide (Milk Of Magnesia) 30 ml PO HS PRN PRN Reason: Constipation Metformin HCl (Glucophage) 500 mg PO BIDWM [facility] Stop: 09/17/19 08:59 Last Admin: 08/01/19 08:05 Dose: 500 mg Multivitamins/Vitamin C (Theragran) 1 tab PO DAILY [facility] Stop: 09/17/19 08:59 Last Admin: 08/01/19 08:36 Dose: 1 tab Neomycin/Polymyxin/Bacitracin (Triple Antibiotic Pkt) 1 pkt TP BID [facility] Stop: 09/20/19 08:59 Last Admin: 08/01/19 08:35 Dose: 1 pkt Polyethylene Glycol (Miralax) 17 gm PO DAILY [facility] Stop: 09/24/19 13:25 Last Admin: 08/01/19 08:35 Dose: 17 gm Pregabalin (Lyrica) 100 mg PO BID [facility] Stop: 09/17/19 08:59 Last Admin: 08/01/19 08:36 Dose: 100 mg Quetiapine Fumarate (Seroquel) 25 mg PO HS [facility]; Protocol Stop: 09/23/19 20:59 Last Admin: 07/31/19 21:03 Dose: 25 mg Simvastatin (Zocor) 20 mg PO HS [facility]; Protocol Stop: 09/16/19 20:59 Last Admin: 07/31/19 21:03 Dose: 20 mg Sitagliptin Phosphate (Januvia) 50 mg PO BID [facility] Stop: 09/17/19 08:59 Last Admin: 08/01/19 08:35 Dose: 50 mg Tamsulosin HCl (Flomax) 0.4 mg PO DAILY [facility] Stop: 09/19/19 12:26 Last Admin: 08/01/19 08:37 Dose: 0.4 mg Zolpidem Tartrate (Ambien) 10 mg PO HS PRN PRN Reason: Insomnia Stop: 09/16/19 23:00 Last Admin: 07/26/19 21:23 Dose: 10 mg General: thin HEENT: NC/AT, PERRLA, EOMI Neck: Supple, No JVD, No thyromegaly, No LAD Lungs: CTAB Cardiovascular: RRR, Normal S1, Normal S2, with murmur Abdomen: soft, non-tender, non-distended, positive bowel sound Extremities: clear Internal Medicine Assmt/Plan - Assessment Assessment: ASSESSMENT AND PLAN: Diabetes, hypertension, hypercholesterolemia, peripheral neuropathy. bph l 5th digit nonhealing wound PAD - Plan Plan: PLAN: Continue the patient on ADA diet and insulin sliding scale. We will continue on his oral hypoglycemic medications. We will continue metformin and Januvia. Continue on angiotensin converting enzyme inhibitor as well as Lyrica for neuropathy and a statin for hyperlipidemia. will add flomax add keflex ble arterial us-p add miralax dw cm and rn will add plavix Nutritional Asmnt/Malnutr-PDOC - Dietary Evaluation Malnutrition Findings (Please click <Entered> for more info): Nutritional Asmnt/Malnutrition Start: 07/21/19 14: 03 Text: Status: Complete Freq: Protocol: Document 07/21/19 14:03 JASBIR (Rec: 07/21/19 14:10 [email or web address] [email or web address]) Nutritional Asmnt/Malnutrition Patient General Information Nutritional Screening Moderate Risk Low Risk Diagnosis Psychosis Pertinent Medical Hx/Surgical Hx HTN, DM, Hypercholesterolemia, Alzheimers Subjective Information Pt is a 83-year-old male admitted on 07/17 d/t aggressive combative behaviors , paranoias. 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 Dietary is currently providing an estimated 2500 kcals and 128 gm Pro, per Pt PO intake this is providing an estimated 1750 kcals and 90gm Pro to meet 100% kcal and 100 +% Pro needs. Pt receives Glucerna TID with snacks per pt request. Spoke with pt yesterday as high school social studies tutor was told by pts that he eats a liquid diet at home and was having trouble chewing. Pt stated he does not need a liquid diet, he does enjoy soups but can chew just fine. Pt does require assistance when eating. Pt. is adequately meeting estimated nutritional needs, has not had any Glucerna. Discounting Glucerna TID, will continue to monitor PO intake. Anthropometrics HT: 57 WT: 140 LB (63.63 kg) BMI: 21.92 (Normal) GI/ Skin Integrity GI: WNL, Soft, Non-tender, flat BM: 07/19 x1 I/O: 1440/Not Noted Skin: Wound on nose bridge, left fifth toe wound Brody: 17 Diet Order: CCHO, Chopped Estimated Energy Needs: ( Geriatric, CBW) 5160-0698 kcals (25-30 kcals/ kg) 65-80g Pro (1.0-1.2 g/kg) 8991-1561 ml (25-30 ml/kg) Current Diet Order/ Nutrition Support CCHO, Chopped Patient / S.O Can Pertinent Medications Maalox (PRN), Albuterol (PRN), Glutose 40% (PRN), Glucagen ( PRN), INS-SS, MOM (PRN), Glucophage, Theragran, Januvia , Flomax Pertinent Labs POC Glucose (last 24 hrs): 106 , 171, 108, 96, 179 07/17 Na 130, Glucose 135, T Pro 6.1, Alb 3.3, A1C 5.8% Nutritional Hx/Data Height 1.7 m Height (Calculated Centimeters) 170.2 Current Weight (lbs) 63.503 kg Weight (Calculated Kilograms) 63.5 Weight (Calculated Grams) 96940.9 [place] Body Weight 148 lbs (67.27kg) Body Mass Index (BMI) 21.9 Weight Status Approriate GI Symptoms GI Symptoms None Last BM 07/19 x1 Usual diet at home lots of broths Skin Integrity/Comment: Skin: Wound on nose bridge, left fifth toe wound Brody: 17 Current %PO Fair (50-74%) Estimated Nutritional Goals BEE in Kcals: Using Current wt Calories/Kcals/Kg 25-30 Kcals Calculated 7597-8312 Protein: Using Current wt Protein g/k.0-1.2 Protein Calculated 65-80 Fluid: ml 3652-8936 ml (25-30 ml/kg) Nutritional Problem 1. Problem Problem Impaired nutrient utilization Etiology r/t endocrine dysfunction Signs/Symptoms: aeb labs 07/17 Glucose 135, 07/20 POC Glucose 106, 171, 108, 96 , 179 and A1C 5.8%. Malnutrition Related to Morbid Obesity Malnutrition related to morbid obesity No Intervention/Recommendation Comments 1.Continue CCHO, chopped diet as tolerated. 2.Continue antihyperglycemic medication for glucose control per MD order. Expected Outcomes/Goals Expected Outcomes/Goals 1.PO intake to meet 75% of estimated nutritional needs. 2.Monitor PO intake, wt, nutrition related labs, and skin integrity to trend WNL. 3.F/U as low risk in 7-10 days , 07/27-07/30.
[2019-08-02] MEDS: INSULIN LISPRO SLIDING SCALE 100 UNITS/ML UNIT SUBQ SCH ×4 (06:42→21:26)
[2019-08-02] MEDS: POLYETHYLENE GLYCOL 3350 17 GM PACK PO SCH (08:23)
[2019-08-02] MEDS: Multivitamin Tab PO SCH (08:24)
[2019-08-02] MEDS: Triple Antibiotic 0.94 gm Pkt TP SCH ×2 (08:25→17:07)
[2019-08-02] MEDS: Venelex 60gm Tube TP SCH (08:26)
--- NOTE | 2019-08-02 13:12 | Internal Medicine Prog Note ---
Internal Medicine Subjective - Subjective Patient seen and examined:: with staff, chart reviewed Patient is:: awake, verbal, interactive, jaret chair, confused Per staff patient has:: no adverse event, no episodes of fall, poor appetite, poor oral intake, noncompliant, refusing care Internal Medicine Objective - Results Recent Labs: Laboratory Last Values POC Glucose 135 MG/DL (70 - 105) H 08/02/19 11:06 - Physical Exam Vitals and I&O: Vital Signs Temp 98.3 F 08/02/19 06:27 Pulse 59 08/02/19 08:23 Resp 18 08/02/19 08:00 BP 150/61 08/02/19 08:23 Pulse Ox 94 08/02/19 06:27 Intake & Output 08/01/19 08/02/19 08/02/19 18:59 06:59 18:59 Intake Total 120 Balance 120 Intake: Oral 120 Other: # Voids 3 2 # Bowel Movements 1 0 Active Medications: Current Medications Acetaminophen (Tylenol) 650 mg PO Q4H PRN PRN Reason: Pain (Mild 1-3) Stop: 09/16/19 18:21 Last Admin: 07/23/19 15:30 Dose: 650 mg Al Hydrox/Mg Hydrox/Simethicone (Maalox) 30 ml PO Q4HR PRN PRN Reason: GI DISTRESS Stop: 09/16/19 22:35 Albuterol Sulfate (Albuterol 2.5mg/3ml Neb Ud) 2.5 mg HHN QIDRT PRN PRN Reason: Shortness of Breath or Wheeze Stop: 09/16/19 18:59 Benazepril HCl (Lotensin) 10 mg PO BID [facility] Stop: 09/17/19 08:59 Last Admin: 08/02/19 08:23 Dose: 10 mg [place] Oil/[place] Balsam/Trypsin (Venelex) 1 appl TP DAILY [facility] Stop: 09/25/19 12:29 Last Admin: 08/02/19 08:26 Dose: 1 appl Cephalexin Monohydrate (Keflex) 500 mg PO TID [facility] Stop: 09/23/19 16:59 Last Admin: 08/02/19 08:24 Dose: 500 mg Clopidogrel Bisulfate (Plavix) 75 mg PO DAILY [facility] Stop: 09/30/19 08:59 Last Admin: 08/02/19 08:23 Dose: 75 mg Dextrose (Glutose 40%) 18.75 gm PO PRN PRN PRN Reason: BS Below 70 if tolerate po Stop: 09/16/19 18:22 Glucagon (Glucagen) 1 mg IM PRN PRN PRN Reason: BS Below 70 if not tolerate po Stop: 09/16/19 18:22 Insulin Human Lispro (Humalog Insulin Sliding Scale) 0 units SUBQ ACHS [facility]; Protocol Stop: 09/16/19 20:59 Last Admin: 08/02/19 11:10 Dose: Not Given Lorazepam (Ativan) 0.5 mg PO Q4HR PRN; Protocol PRN Reason: Anxiety Stop: 08/17/19 22:35 Last Admin: 07/31/19 21:03 Dose: 0.5 mg Magnesium Hydroxide (Milk Of Magnesia) 30 ml PO HS PRN PRN Reason: Constipation Metformin HCl (Glucophage) 500 mg PO BIDWM [facility] Stop: 09/17/19 08:59 Last Admin: 08/02/19 08:23 Dose: 500 mg Multivitamins/Vitamin C (Theragran) 1 tab PO DAILY [facility] Stop: 09/17/19 08:59 Last Admin: 08/02/19 08:24 Dose: 1 tab Neomycin/Polymyxin/Bacitracin (Triple Antibiotic Pkt) 1 pkt TP BID [facility] Stop: 09/20/19 08:59 Last Admin: 08/02/19 08:25 Dose: 1 pkt Polyethylene Glycol (Miralax) 17 gm PO DAILY [facility] Stop: 09/24/19 13:25 Last Admin: 08/02/19 08:23 Dose: 17 gm Pregabalin (Lyrica) 100 mg PO BID [facility] Stop: 09/17/19 08:59 Last Admin: 08/02/19 08:24 Dose: 100 mg Quetiapine Fumarate (Seroquel) 25 mg PO HS [facility]; Protocol Stop: 09/23/19 20:59 Last Admin: 08/01/19 20:22 Dose: 25 mg Simvastatin (Zocor) 20 mg PO HS [facility]; Protocol Stop: 09/16/19 20:59 Last Admin: 08/01/19 20:22 Dose: 20 mg Sitagliptin Phosphate (Januvia) 50 mg PO BID [facility] Stop: 09/17/19 08:59 Last Admin: 08/02/19 08:23 Dose: 50 mg Tamsulosin HCl (Flomax) 0.4 mg PO DAILY [facility] Stop: 09/19/19 12:26 Last Admin: 08/02/19 08:24 Dose: 0.4 mg Zolpidem Tartrate (Ambien) 10 mg PO HS PRN PRN Reason: Insomnia Stop: 09/16/19 23:00 Last Admin: 08/01/19 20:22 Dose: 10 mg General: thin HEENT: NC/AT, PERRLA, EOMI Neck: Supple, No JVD, No thyromegaly, No LAD Lungs: CTAB Cardiovascular: RRR, Normal S1, Normal S2, with murmur Abdomen: soft, non-tender, non-distended, positive bowel sound Extremities: clear Internal Medicine Assmt/Plan - Assessment Assessment: ASSESSMENT AND PLAN: Diabetes, hypertension, hypercholesterolemia, peripheral neuropathy. bph l 5th digit nonhealing wound PAD - Plan Plan: PLAN: Continue the patient on ADA diet and insulin sliding scale. We will continue on his oral hypoglycemic medications. We will continue metformin and Januvia. Continue on angiotensin converting enzyme inhibitor as well as Lyrica for neuropathy and a statin for hyperlipidemia. will add flomax add keflex ble arterial us-p add miralax dw cm and rn will add plavix Nutritional Asmnt/Malnutr-PDOC - Dietary Evaluation Malnutrition Findings (Please click <Entered> for more info): Nutritional Asmnt/Malnutrition Start: 07/21/19 14: 03 Text: Status: Complete Freq: Protocol: Document 07/21/19 14:03 JASBIR (Rec: 07/21/19 14:10 JASBIR [id number]) Nutritional Asmnt/Malnutrition Patient General Information Nutritional Screening Moderate Risk Low Risk Diagnosis Psychosis Pertinent Medical Hx/Surgical Hx HTN, DM, Hypercholesterolemia, Alzheimers Subjective Information Pt is a 83-year-old male admitted on 07/17 d/t aggressive combative behaviors , paranoias. Pt is eating an estimated 70% of meals per [employer] PI DEVELOPER account. Dietary is currently providing an estimated 2500 kcals and 128 gm Pro, per Pt PO intake this is providing an estimated 1750 kcals and 90gm Pro to meet 100% kcal and 100 +% Pro needs. Pt receives Glucerna TID with snacks per pt request. Spoke with pt yesterday as social service worker was told by pts that he eats a liquid diet at home and was having trouble chewing. Pt stated he does not need a liquid diet, he does enjoy soups but can chew just fine. Pt does require assistance when eating. Pt. is adequately meeting estimated nutritional needs, has not had any Glucerna. Discounting Glucerna TID, will continue to monitor PO intake. Anthropometrics HT: 57 WT: 140 LB (63.63 kg) BMI: 21.92 (Normal) GI/ Skin Integrity GI: WNL, Soft, Non-tender, flat BM: 07/19 x1 I/O: 1440/Not Noted Skin: Wound on nose bridge, left fifth toe wound Brody: 17 Diet Order: CCHO, Chopped Estimated Energy Needs: ( Geriatric, CBW) 0051-1198 kcals (25-30 kcals/ kg) 65-80g Pro (1.0-1.2 g/kg) 6471-2349 ml (25-30 ml/kg) Current Diet Order/ Nutrition Support CCHO, Chopped Patient / S.O Can Pertinent Medications Maalox (PRN), Albuterol (PRN), Glutose 40% (PRN), Glucagen ( PRN), INS-SS, MOM (PRN), Glucophage, Theragran, Januvia , Flomax Pertinent Labs POC Glucose (last 24 hrs): 106 , 171, 108, 96, 179 07/17 Na 130, Glucose 135, T Pro 6.1, Alb 3.3, A1C 5.8% Nutritional Hx/Data Height 1.7 m Height (Calculated Centimeters) 170.2 Current Weight (lbs) 63.503 kg Weight (Calculated Kilograms) 63.5 Weight (Calculated Grams) 16139.9 [place] Body Weight 148 lbs (67.27kg) Body Mass Index (BMI) 21.9 Weight Status Approriate GI Symptoms GI Symptoms None Last BM 07/19 x1 Usual diet at home lots of broths Skin Integrity/Comment: Skin: Wound on nose bridge, left fifth toe wound Brody: 17 Current %PO Fair (50-74%) Estimated Nutritional Goals BEE in Kcals: Using Current wt Calories/Kcals/Kg 25-30 Kcals Calculated 7717-5071 Protein: Using Current wt Protein g/k.0-1.2 Protein Calculated 65-80 Fluid: ml 1724-9253 ml (25-30 ml/kg) Nutritional Problem 1. Problem Problem Impaired nutrient utilization Etiology r/t endocrine dysfunction Signs/Symptoms: aeb labs 07/17 Glucose 135, 07/20 POC Glucose 106, 171, 108, 96 , 179 and A1C 5.8%. Malnutrition Related to Morbid Obesity Malnutrition related to morbid obesity No Intervention/Recommendation Comments 1.Continue CCHO, chopped diet as tolerated. 2.Continue antihyperglycemic medication for glucose control per MD order. Expected Outcomes/Goals Expected Outcomes/Goals 1.PO intake to meet 75% of estimated nutritional needs. 2.Monitor PO intake, wt, nutrition related labs, and skin integrity to trend WNL. 3.F/U as low risk in 7-10 days , 07/27-07/30.
[2019-08-03] MEDS: INSULIN LISPRO SLIDING SCALE 100 UNITS/ML UNIT SUBQ SCH ×4 (07:03→21:41)
[2019-08-03] MEDS: Multivitamin Tab PO SCH (08:29)
[2019-08-03] MEDS: POLYETHYLENE GLYCOL 3350 17 GM PACK PO SCH ×2 (08:31→08:35)
[2019-08-03] MEDS: Venelex 60gm Tube TP SCH (08:34)
[2019-08-03] MEDS: Triple Antibiotic 0.94 gm Pkt TP SCH ×2 (08:34→16:49)
--- NOTE | 2019-08-03 13:32 | Internal Medicine Prog Note ---
Internal Medicine Subjective - Subjective Patient seen and examined:: with staff, chart reviewed Patient is:: awake, verbal, interactive, jaret chair, confused Per staff patient has:: no adverse event, no episodes of fall, poor appetite, poor oral intake, noncompliant, refusing care Internal Medicine Objective - Results Recent Labs: Laboratory Last Values POC Glucose 91 MG/DL (70 - 105) 08/03/19 06:27 - Physical Exam Vitals and I&O: Vital Signs Temp 97.5 F 08/03/19 06:56 Pulse 98 08/03/19 08:30 Resp 19 08/03/19 07:22 BP 128/61 08/03/19 08:30 Pulse Ox 98 08/03/19 06:56 Intake & Output 08/02/19 08/03/19 08/03/19 18:59 06:59 18:59 Intake Total 1150 240 Output Total 3 Balance 1147 240 Intake: Oral 1150 240 Output: Urine 3 Other: # Voids 3 2 # Bowel Movements 0 Active Medications: Current Medications Acetaminophen (Tylenol) 650 mg PO Q4H PRN PRN Reason: Pain (Mild 1-3) Stop: 09/16/19 18:21 Last Admin: 07/23/19 15:30 Dose: 650 mg Al Hydrox/Mg Hydrox/Simethicone (Maalox) 30 ml PO Q4HR PRN PRN Reason: GI DISTRESS Stop: 09/16/19 22:35 Albuterol Sulfate (Albuterol 2.5mg/3ml Neb Ud) 2.5 mg HHN QIDRT PRN PRN Reason: Shortness of Breath or Wheeze Stop: 09/16/19 18:59 Benazepril HCl (Lotensin) 10 mg PO BID [facility] Stop: 09/17/19 08:59 Last Admin: 08/03/19 08:30 Dose: 10 mg [place] Oil/[place] Balsam/Trypsin (Venelex) 1 appl TP DAILY [facility] Stop: 09/25/19 12:29 Last Admin: 08/03/19 08:34 Dose: 1 appl Cephalexin Monohydrate (Keflex) 500 mg PO TID [facility] Stop: 09/23/19 16:59 Last Admin: 08/03/19 08:29 Dose: 500 mg Clopidogrel Bisulfate (Plavix) 75 mg PO DAILY [facility] Stop: 09/30/19 08:59 Last Admin: 08/03/19 08:30 Dose: 75 mg Dextrose (Glutose 40%) 18.75 gm PO PRN PRN PRN Reason: BS Below 70 if tolerate po Stop: 09/16/19 18:22 Glucagon (Glucagen) 1 mg IM PRN PRN PRN Reason: BS Below 70 if not tolerate po Stop: 09/16/19 18:22 Insulin Human Lispro (Humalog Insulin Sliding Scale) 0 units SUBQ ACHS [facility]; Protocol Stop: 09/16/19 20:59 Last Admin: 08/03/19 11:35 Dose: Not Given Lorazepam (Ativan) 0.5 mg PO Q4HR PRN; Protocol PRN Reason: Anxiety Stop: 08/17/19 22:35 Last Admin: 07/31/19 21:03 Dose: 0.5 mg Magnesium Hydroxide (Milk Of Magnesia) 30 ml PO HS PRN PRN Reason: Constipation Metformin HCl (Glucophage) 500 mg PO BIDWM [facility] Stop: 09/17/19 08:59 Last Admin: 08/03/19 08:05 Dose: 500 mg Multivitamins/Vitamin C (Theragran) 1 tab PO DAILY [facility] Stop: 09/17/19 08:59 Last Admin: 08/03/19 08:29 Dose: 1 tab Neomycin/Polymyxin/Bacitracin (Triple Antibiotic Pkt) 1 pkt TP BID [facility] Stop: 09/20/19 08:59 Last Admin: 08/03/19 08:34 Dose: 1 pkt Polyethylene Glycol (Miralax) 17 gm PO DAILY [facility] Stop: 09/24/19 13:25 Last Admin: 08/03/19 08:35 Dose: Not Given Pregabalin (Lyrica) 100 mg PO BID [facility] Stop: 09/17/19 08:59 Last Admin: 08/03/19 08:29 Dose: 100 mg Quetiapine Fumarate (Seroquel) 25 mg PO HS [facility]; Protocol Stop: 09/23/19 20:59 Last Admin: 08/02/19 20:48 Dose: 25 mg Simvastatin (Zocor) 20 mg PO HS [facility]; Protocol Stop: 09/16/19 20:59 Last Admin: 08/02/19 20:48 Dose: 20 mg Sitagliptin Phosphate (Januvia) 50 mg PO BID [facility] Stop: 09/17/19 08:59 Last Admin: 08/03/19 08:29 Dose: 50 mg Tamsulosin HCl (Flomax) 0.4 mg PO DAILY [facility] Stop: 09/19/19 12:26 Last Admin: 08/03/19 08:30 Dose: 0.4 mg Zolpidem Tartrate (Ambien) 10 mg PO HS PRN PRN Reason: Insomnia Stop: 09/16/19 23:00 Last Admin: 08/02/19 20:48 Dose: 10 mg General: thin HEENT: NC/AT, PERRLA, EOMI Neck: Supple, No JVD, No thyromegaly, No LAD Lungs: CTAB Cardiovascular: RRR, Normal S1, Normal S2, with murmur Abdomen: soft, non-tender, non-distended, positive bowel sound Extremities: clear Internal Medicine Assmt/Plan - Assessment Assessment: ASSESSMENT AND PLAN: Diabetes, hypertension, hypercholesterolemia, peripheral neuropathy. bph l 5th digit nonhealing wound PAD - Plan Plan: PLAN: Continue the patient on ADA diet and insulin sliding scale. We will continue on his oral hypoglycemic medications. We will continue metformin and Januvia. Continue on angiotensin converting enzyme inhibitor as well as Lyrica for neuropathy and a statin for hyperlipidemia. will add flomax add keflex ble arterial us-p add miralax dw cm and rn will add plavix Nutritional Asmnt/Malnutr-PDOC - Dietary Evaluation Malnutrition Findings (Please click <Entered> for more info): Nutritional Asmnt/Malnutrition Start: 07/21/19 14: 03 Text: Status: Complete Freq: Protocol: Document 07/21/19 14:03 JASBIR (Rec: 07/21/19 14:10 JASBIR [id number]) Nutritional Asmnt/Malnutrition Patient General Information Nutritional Screening Moderate Risk Low Risk Diagnosis Psychosis Pertinent Medical Hx/Surgical Hx HTN, DM, Hypercholesterolemia, Alzheimers Subjective Information Pt is a 83-year-old male admitted on 07/17 d/t aggressive combative behaviors , paranoias. 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 Dietary is currently providing an estimated 2500 kcals and 128 gm Pro, per Pt PO intake this is providing an estimated 1750 kcals and 90gm Pro to meet 100% kcal and 100 +% Pro needs. Pt receives Glucerna TID with snacks per pt request. Spoke with pt yesterday as social sciences instructor was told by pts that he eats a liquid diet at home and was having trouble chewing. Pt stated he does not need a liquid diet, he does enjoy soups but can chew just fine. Pt does require assistance when eating. Pt. is adequately meeting estimated nutritional needs, has not had any Glucerna. Discounting Glucerna TID, will continue to monitor PO intake. Anthropometrics HT: 57 WT: 140 LB (63.63 kg) BMI: 21.92 (Normal) GI/ Skin Integrity GI: WNL, Soft, Non-tender, flat BM: 07/19 x1 I/O: 1440/Not Noted Skin: Wound on nose bridge, left fifth toe wound Brody: 17 Diet Order: CCHO, Chopped Estimated Energy Needs: ( Geriatric, CBW) 3612-9314 kcals (25-30 kcals/ kg) 65-80g Pro (1.0-1.2 g/kg) 4614-4674 ml (25-30 ml/kg) Current Diet Order/ Nutrition Support CCHO, Chopped Patient / S.O Can Pertinent Medications Maalox (PRN), Albuterol (PRN), Glutose 40% (PRN), Glucagen ( PRN), INS-SS, MOM (PRN), Glucophage, Theragran, Januvia , Flomax Pertinent Labs POC Glucose (last 24 hrs): 106 , 171, 108, 96, 179 07/17 Na 130, Glucose 135, T Pro 6.1, Alb 3.3, A1C 5.8% Nutritional Hx/Data Height 1.7 m Height (Calculated Centimeters) 170.2 Current Weight (lbs) 63.503 kg Weight (Calculated Kilograms) 63.5 Weight (Calculated Grams) 44120.9 [place] Body Weight 148 lbs (67.27kg) Body Mass Index (BMI) 21.9 Weight Status Approriate GI Symptoms GI Symptoms None Last BM 07/19 x1 Usual diet at home lots of broths Skin Integrity/Comment: Skin: Wound on nose bridge, left fifth toe wound Brody: 17 Current %PO Fair (50-74%) Estimated Nutritional Goals BEE in Kcals: Using Current wt Calories/Kcals/Kg 25-30 Kcals Calculated 9526-6494 Protein: Using Current wt Protein g/k.0-1.2 Protein Calculated 65-80 Fluid: ml 3616-4917 ml (25-30 ml/kg) Nutritional Problem 1. Problem Problem Impaired nutrient utilization Etiology r/t endocrine dysfunction Signs/Symptoms: aeb labs 07/17 Glucose 135, 07/20 POC Glucose 106, 171, 108, 96 , 179 and A1C 5.8%. Malnutrition Related to Morbid Obesity Malnutrition related to morbid obesity No Intervention/Recommendation Comments 1.Continue CCHO, chopped diet as tolerated. 2.Continue antihyperglycemic medication for glucose control per MD order. Expected Outcomes/Goals Expected Outcomes/Goals 1.PO intake to meet 75% of estimated nutritional needs. 2.Monitor PO intake, wt, nutrition related labs, and skin integrity to trend WNL. 3.F/U as low risk in 7-10 days , 07/27-07/30.
[2019-08-04] MEDS: INSULIN LISPRO SLIDING SCALE 100 UNITS/ML UNIT SUBQ SCH ×2 (06:42→12:28)
[2019-08-04] MEDS: POLYETHYLENE GLYCOL 3350 17 GM PACK PO SCH (09:06)
[2019-08-04] MEDS: Multivitamin Tab PO SCH (09:06)
--- NOTE | 2019-08-04 13:00 | Internal Medicine Prog Note ---
Internal Medicine Subjective - Subjective Patient seen and examined:: with staff, chart reviewed Patient is:: awake, verbal, interactive, jaret chair, confused Per staff patient has:: no adverse event, no episodes of fall, poor appetite, poor oral intake, noncompliant, refusing care Internal Medicine Objective - Results Recent Labs: Laboratory Last Values POC Glucose 98 MG/DL (70 - 105) 08/04/19 11:31 - Physical Exam Vitals and I&O: Vital Signs Temp 97.2 F 08/04/19 11:54 Pulse 102 08/04/19 11:54 Resp 20 08/04/19 11:54 BP 103/54 08/04/19 11:54 Pulse Ox 98 08/04/19 11:54 Intake & Output 08/03/19 08/04/19 08/04/19 18:59 06:59 18:59 Intake Total 1000 120 Balance 1000 120 Intake: Oral 1000 120 Other: # Voids 4 2 # Bowel Movements 1 0 Active Medications: Current Medications Acetaminophen (Tylenol) 650 mg PO Q4H PRN PRN Reason: Pain (Mild 1-3) Stop: 09/16/19 18:21 Last Admin: 07/23/19 15:30 Dose: 650 mg Al Hydrox/Mg Hydrox/Simethicone (Maalox) 30 ml PO Q4HR PRN PRN Reason: GI DISTRESS Stop: 09/16/19 22:35 Albuterol Sulfate (Albuterol 2.5mg/3ml Neb Ud) 2.5 mg HHN QIDRT PRN PRN Reason: Shortness of Breath or Wheeze Stop: 09/16/19 18:59 Benazepril HCl (Lotensin) 10 mg PO BID [facility] Stop: 09/17/19 08:59 Last Admin: 08/04/19 09:40 Dose: Not Given [place] Oil/[place] Balsam/Trypsin (Venelex) 1 appl TP DAILY [facility] Stop: 09/25/19 12:29 Last Admin: 08/03/19 08:34 Dose: 1 appl Cephalexin Monohydrate (Keflex) 500 mg PO TID [facility] Stop: 09/23/19 16:59 Last Admin: 08/04/19 09:06 Dose: 500 mg Clopidogrel Bisulfate (Plavix) 75 mg PO DAILY [facility] Stop: 09/30/19 08:59 Last Admin: 08/04/19 09:06 Dose: 75 mg Dextrose (Glutose 40%) 18.75 gm PO PRN PRN PRN Reason: BS Below 70 if tolerate po Stop: 09/16/19 18:22 Glucagon (Glucagen) 1 mg IM PRN PRN PRN Reason: BS Below 70 if not tolerate po Stop: 09/16/19 18:22 Insulin Human Lispro (Humalog Insulin Sliding Scale) 0 units SUBQ ACHS [facility]; Protocol Stop: 09/16/19 20:59 Last Admin: 08/04/19 12:28 Dose: Not Given Lorazepam (Ativan) 0.5 mg PO Q4HR PRN; Protocol PRN Reason: Anxiety Stop: 08/17/19 22:35 Last Admin: 08/04/19 07:35 Dose: 0.5 mg Magnesium Hydroxide (Milk Of Magnesia) 30 ml PO HS PRN PRN Reason: Constipation Metformin HCl (Glucophage) 500 mg PO BIDWM [facility] Stop: 09/17/19 08:59 Last Admin: 08/04/19 07:34 Dose: 500 mg Multivitamins/Vitamin C (Theragran) 1 tab PO DAILY [facility] Stop: 09/17/19 08:59 Last Admin: 08/04/19 09:06 Dose: 1 tab Neomycin/Polymyxin/Bacitracin (Triple Antibiotic Pkt) 1 pkt TP BID [facility] Stop: 09/20/19 08:59 Last Admin: 08/03/19 16:49 Dose: 1 pkt Polyethylene Glycol (Miralax) 17 gm PO DAILY [facility] Stop: 09/24/19 13:25 Last Admin: 08/04/19 09:06 Dose: 17 gm Pregabalin (Lyrica) 100 mg PO BID [facility] Stop: 09/17/19 08:59 Last Admin: 08/04/19 09:06 Dose: 100 mg Quetiapine Fumarate (Seroquel) 25 mg PO HS [facility]; Protocol Stop: 09/23/19 20:59 Last Admin: 08/03/19 20:18 Dose: 25 mg Simvastatin (Zocor) 20 mg PO HS [facility]; Protocol Stop: 09/16/19 20:59 Last Admin: 08/03/19 20:19 Dose: 20 mg Sitagliptin Phosphate (Januvia) 50 mg PO BID [facility] Stop: 09/17/19 08:59 Last Admin: 08/03/19 16:50 Dose: 50 mg Tamsulosin HCl (Flomax) 0.4 mg PO DAILY [facility] Stop: 09/19/19 12:26 Last Admin: 08/04/19 09:06 Dose: 0.4 mg Zolpidem Tartrate (Ambien) 10 mg PO HS PRN PRN Reason: Insomnia Stop: 09/16/19 23:00 Last Admin: 08/03/19 20:18 Dose: 10 mg General: thin HEENT: NC/AT, PERRLA, EOMI Neck: Supple, No JVD, No thyromegaly, No LAD Lungs: CTAB Cardiovascular: RRR, Normal S1, Normal S2, with murmur Abdomen: soft, non-tender, non-distended, positive bowel sound Extremities: clear Internal Medicine Assmt/Plan - Assessment Assessment: ASSESSMENT AND PLAN: Diabetes, hypertension, hypercholesterolemia, peripheral neuropathy. bph l 5th digit nonhealing wound PAD - Plan Plan: PLAN: Continue the patient on ADA diet and insulin sliding scale. We will continue on his oral hypoglycemic medications. We will continue metformin and Januvia. Continue on angiotensin converting enzyme inhibitor as well as Lyrica for neuropathy and a statin for hyperlipidemia. will add flomax add keflex ble arterial us-p add miralax dw cm and rn will add plavix Nutritional Asmnt/Malnutr-PDOC - Dietary Evaluation Malnutrition Findings (Please click <Entered> for more info): Nutritional Asmnt/Malnutrition Start: 07/21/19 14: 03 Text: Status: Complete Freq: Protocol: Document 07/21/19 14:03 JASBIR (Rec: 07/21/19 14:10 JASBIR [id number]) Nutritional Asmnt/Malnutrition Patient General Information Nutritional Screening Moderate Risk Low Risk Diagnosis Psychosis Pertinent Medical Hx/Surgical Hx HTN, DM, Hypercholesterolemia, Alzheimers Subjective Information Pt is a 83-year-old male admitted on 07/17 d/t aggressive combative behaviors , paranoias. Pt is eating an estimated 70% of meals per PROTECTION CONSULTANT account. Dietary is currently providing an estimated 2500 kcals and 128 gm Pro, per Pt PO intake this is providing an estimated 1750 kcals and 90gm Pro to meet 100% kcal and 100 +% Pro needs. Pt receives Glucerna TID with snacks per pt request. 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 Pt stated he does not need a liquid diet, he does enjoy soups but can chew just fine. Pt does require assistance when eating. Pt. is adequately meeting estimated nutritional needs, has not had any Glucerna. Discounting Glucerna TID, will continue to monitor PO intake. Anthropometrics HT: 57 WT: 140 LB (63.63 kg) BMI: 21.92 (Normal) GI/ Skin Integrity GI: WNL, Soft, Non-tender, flat BM: 07/19 x1 I/O: 1440/Not Noted Skin: Wound on nose bridge, left fifth toe wound Brody: 17 Diet Order: CCHO, Chopped Estimated Energy Needs: ( Geriatric, CBW) 2327-0261 kcals (25-30 kcals/ kg) 65-80g Pro (1.0-1.2 g/kg) 7872-1125 ml (25-30 ml/kg) Current Diet Order/ Nutrition Support CCHO, Chopped Patient / S.O Can Pertinent Medications Maalox (PRN), Albuterol (PRN), Glutose 40% (PRN), Glucagen ( PRN), INS-SS, MOM (PRN), Glucophage, Theragran, Januvia , Flomax Pertinent Labs POC Glucose (last 24 hrs): 106 , 171, 108, 96, 179 07/17 Na 130, Glucose 135, T Pro 6.1, Alb 3.3, A1C 5.8% Nutritional Hx/Data Height 1.7 m Height (Calculated Centimeters) 170.2 Current Weight (lbs) 63.503 kg Weight (Calculated Kilograms) 63.5 Weight (Calculated Grams) 99027.9 [place] Body Weight 148 lbs (67.27kg) Body Mass Index (BMI) 21.9 Weight Status Approriate GI Symptoms GI Symptoms None Last BM 07/19 x1 Usual diet at home lots of broths Skin Integrity/Comment: Skin: Wound on nose bridge, left fifth toe wound Brody: 17 Current %PO Fair (50-74%) Estimated Nutritional Goals BEE in Kcals: Using Current wt Calories/Kcals/Kg 25-30 Kcals Calculated 5846-7757 Protein: Using Current wt Protein g/k.0-1.2 Protein Calculated 65-80 Fluid: ml 6806-4562 ml (25-30 ml/kg) Nutritional Problem 1. Problem Problem Impaired nutrient utilization Etiology r/t endocrine dysfunction Signs/Symptoms: aeb labs 07/17 Glucose 135, 07/20 POC Glucose 106, 171, 108, 96 , 179 and A1C 5.8%. Malnutrition Related to Morbid Obesity Malnutrition related to morbid obesity No Intervention/Recommendation Comments 1.Continue CCHO, chopped diet as tolerated. 2.Continue antihyperglycemic medication for glucose control per MD order. Expected Outcomes/Goals Expected Outcomes/Goals 1.PO intake to meet 75% of estimated nutritional needs. 2.Monitor PO intake, wt, nutrition related labs, and skin integrity to trend WNL. 3.F/U as low risk in 7-10 days , 07/27-07/30.
--- NOTE | 2019-08-04 16:18 | Progress Notes ---
DATE: 08/03/2019 SUBJECTIVE: The patient in the hospital, likely approaching his baseline. Much calmer, seems more cooperative. No overt agitation, ongoing confusion, still confused, disoriented, fair sleep and appetite. Sleeping a lot better. Paranoia is dissipating. Medications were reviewed. Labs were reviewed. Vitals were reviewed. Nursing notes were reviewed at length. Blood pressure 111/65, pulse ranges from 98 to 102. Seems to be tolerant of small dose of Seroquel. ASSESSMENT: The patient is improving. Time was spent with the patient, chart review, staff review. PLAN: We will continue to monitor and plan for discharge tomorrow, placement confirmed. JOB# [id number]
--- NOTE | 2019-08-04 16:18 | Progress Notes ---
DATE: 08/02/2019 SUBJECTIVE: An 83-year-old male, currently in the hospital, ongoing confusion, mostly withdrawn, keeps to self, unable to really have any sort of discussion with him. Generally calm and cooperative, likely at his baseline. No agitation, no escalation of behaviors. Tolerant to medications. Medications reviewed. Labs were reviewed. Vitals reviewed, blood pressure 98/55, pulse of 113, but ranges from 59 to 113. As of late, no distress. Fair sleep and appetite discussed with staff. Nursing notes were reviewed. Slept about 8 hours. Sleeping a lot better. PLAN: Currently pending placement, unable to care for his basic needs. JOB# [id number]
--- NOTE | 2019-08-04 16:18 | Discharge Summary ---
DATE OF DISCHARGE: 08/04/2019 HISTORY OF PRESENT ILLNESS: An 83-year-old male, dementia, worsening symptoms at home, delusional, paranoid, believing is being kidnapped, not sleeping, disruptive at home. could not handle him, poorly oriented. When he got to the hospital, restless in a Nora chair. PAST PSYCHIATRIC HISTORY: Dementia, dementia with behaviors and delusions. FAMILY HISTORY: Noncontributory. SOCIAL HISTORY: A [place] born was living at home. very involved. Children involved. I spoke with family when the patient arrived to the hospital, daughter specifically. DIAGNOSES: Dementia, dementia with behaviors; mood, unspecified; anxiety, unspecified; psychosis, unspecified; rule out delusional disorder. MEDICAL: Please see full H and P. HOSPITAL COURSE: The patient admitted. Medications were started. Seroquel started, slowly increased. Over the course of treatment, mood improved, affect improved, much calmer, still confused, disoriented. No longer delusional, no longer acting out any delusions. Sleeping much better through the night, allowing ADLs. CONDITION ON DISCHARGE: Improved. Confused, but calm. No psychotic symptoms, no SI, no HI, redirectable, allowing ADLs. No agitation. DISCHARGE DIAGNOSES: Dementia, dementia with behaviors; mood, unspecified; anxiety, unspecified; psychosis, unspecified; rule out delusional disorder. PROGNOSIS: The patient follows up with outpatient mental health services and remains compliant with treatment. Prognosis will improve, otherwise, guarded. [facility]# [id number]
== END 2019-08-04 15:30 | DRG 884 ==
LOC: GERO 18:04
PROVIDERS: ADMIT Psychiatry & Neurology Psychiatry; ATTEND Psychiatry & Neurology Psychiatry
DX: F03.91 Unspecified dementia, unspecified severity, with behavioral disturbance (principal); F39 Unspecified mood [affective] disorder; F41.9 Anxiety disorder, unspecified; F29 Unspecified psychosis not due to a substance or known physiological condition; I10 Essential (primary) hypertension; E78.00 Pure hypercholesterolemia, unspecified; E11.51 Type 2 diabetes mellitus with diabetic peripheral angiopathy without gangrene; E11.42 Type 2 diabetes mellitus with diabetic polyneuropathy; G62.9 Polyneuropathy, unspecified; N40.0 Benign prostatic hyperplasia without lower urinary tract symptoms; Z90.49 Acquired absence of other specified parts of digestive tract; Z79.899 Other long term (current) drug therapy
CPT/HCPCS: 82948-90; 83036-90; 90899; 93925-TC; 97530; G0410; X3401; X3904; Z7610